=== PATIENT | male | born 1950 | race Caucasian/White ===

== ENCOUNTER 2022-06-30 04:30 | Inpatient (IN) | payer MEDICARE, OTHER, SELFPAY ==
[2022-06-30] VITALS (23 sets, daily range): BP systolic 135–189; BP diastolic 81–98; PULSE 80–105; RESP 13–18; TEMP 36–37.2; O2SAT 93–98; BMI 34.2
--- NOTE | 2022-06-30 04:33 | ED_ITS ---
Documented by User: Alexis Hudson MD 06/30/22 04:35 HPI - General Adult General: Chief complaint: General Medical Stated complaint: bladder issues Time Seen by Provider: 06/30/22 04:31 Source: patient and EMS Mode of arrival: EMS Limitations: no limitations History of Present Illness: 71-year-old male who was transferred here from [place] with urinary retention along with hematuria does have a history of cancer patient was seen at [place] had a CT scan that showed large clots in his bladder he does have a Courtney in place but states that he has had increasing pain and is unable to urinate all the way they did not have three-way catheter therefore urology he states his pain is suprapubic in nature rates it a 5 out of 10. He does have blood in the Courtney at this time. Associated symptoms: Deny chest pain, dyspnea, headache(s), nausea, rash or vomiting Review of Systems Const: Denies: fever(s), chills, body aches or change in appetite Eyes: Denies: blurry vision or eye discomfort ENMT: Denies: throat pain or dental pain Card: Denies: chest pain Resp: Denies: dyspnea GI: Denies: abdominal pain, nausea, vomiting or diarrhea : Reports: difficulty urinating and hematuria Musc: Denies: neck pain or back pain Skin/Breast: Denies: rash Neuro: Denies: headache(s) Psych: Denies: depression Antonio/Lymph: Denies: easy bruising All/Imm: Denies: urticaria PFSH ED PFSH: Medical History (Updated 06/30/22 @ 06:40 by Monico Cason MD) Arthritis Obstructive sleep apnea Squamous cell carcinoma Surgical History (Updated 06/30/22 @ 06:36 by Monico Cason MD) History of cardiac catheterization History of colonoscopy History of sinus surgery History of total knee arthroplasty Status post tonsillectomy Family History (Updated 06/30/22 @ 06:37 by Monico Cason MD) Denies family history of Bleeding disorder Social History (Updated 06/30/22 @ 06:37 by Monico Cason MD) Smoking and tobacco status: smoker, details unknown Alcohol intake: current Alcohol use comment: Rare Substance/Drug Use: current Substance/Drug use type: Marijuana Physical Exam Const: COMMON NORMALS: no acute distress, patient oriented x3 and healthy appe [facility] HENMT: COMMON NORMALS: normocephalic and atraumatic HEAD & SCALP: normocephalic and atraumatic Eye: COMMON NORMALS: Equal, round and reactive pupils present and EOMs intact bilaterally PUPIL: Yes Equal, round and reactive pupils present Neck/C-Spine: COMMON NORMALS: full ROM and supple Chest: COMMONS NORMALS: normal inspection of the chest and normal palpation of entire chest wall Resp: COMMON NORMALS: normal respiratory effort, No retractions, No use of accessory muscles and clear to auscultation bilaterally AUSCULTATION: clear to auscultation bilaterally Cardio: COMMON NORMALS: regular rate, regular rhythm and No murmurs present (Cardio) RATE: regular rate RHYTHM: regular rhythm GI: COMMON NORMALS: Normal to inspection, nondistended, normoactive bowel sounds present, Soft to palpation and no masses PALPATION: Yes Soft to palpation OTHER: Suprapubic tenderness patient has a Courtney in place minimal drainage in the Courtney bag has a large amount of blood in it Extremity: COMMON NORMALS: normal to inspection and full ROM Neuro: COMMON NORMALS: patient oriented x3, moves all extremities and no focal motor deficits Psych: COMMON NORMALS: mental status grossly normal, Normal thought process present and cooperative THOUGHT PROCESS: Normal thought process present Skin: COMMON NORMALS: no rashes or lesions noted and no wounds GENERAL SKIN EXAM: no rashes or lesions noted Course 2 Vital Signs: Vital signs: Vital Signs Temperature 96.8 F L 06/30/22 04:30 Pulse Rate 93 06/30/22 06:15 Respiratory Rate 18 06/30/22 06:15 Blood Pressure 147/86 06/30/22 06:15 Pulse Oximetry 97 06/30/22 06:15 Oxygen Delivery Me thod 06/30/22 06:15 Oxygen Flow Rate 1 06/30/22 06:15 [facility] - General Adult Lab Data : 06/30/22 05:00 06/30/22 05:00 Laboratory Results WBC 12.6 10^3/uL (4.0-10.0) H 06/30/22 05:00 RBC 3.99 10^6/uL (4.1-5.3) L 06/30/22 05:00 Hgb 11.4 g/dL (11.7-16.6) L 06/30/22 05:00 Hct 34.5 % (42.0-52.0) L 06/30/22 05:00 MCV 86.5 fl (80-94) 06/30/22 05:00 MCH 28.6 pg (28.0-34.0) 06/30/22 05:00 MCHC 33.0 g/dL (30.0-36.0) 06/30/22 05:00 RDW 14.3 % (12.1-15.1) 06/30/22 05:00 Plt Count 160 10^3/cmm (130-400) 06/30/22 05:00 MPV 9.7 fL (7.4-10.4) 06/30/22 05:00 Neut % (Auto) 84.3 % 06/30/22 05:00 Lymph % (Auto) 8.8 % 06/30/22 05:00 Patrick % (Auto) 5.8 % 06/30/22 05:00 Eos % (Auto) 0.2 % 06/30/22 05:00 Baso % (Auto) 0.4 % 06/30/22 05:00 Neut # (Auto) 10.58 10^3/uL (1.8-7.7) H 06/30/22 05:00 Lymph # (Auto) 1.1 10^3/uL (0.8-4.8) 06/30/22 05:00 Patrick # (Auto) 0.7 10^3/uL (0.2-0.9) 06/30/22 05:00 Eos # (Auto) 0.0 10^3/uL (0.0-0.8) 06/30/22 05:00 Baso # (Auto) 0.1 10^3/uL (0.0-0.1) 06/30/22 05:00 Nucleated RBC % (auto) 0 % 06/30/22 05:00 Nucleated RBCs # 0.0 /100WBC 06/30/22 05:00 PT 16.20 SECONDS (12.1-14.9) H 06/30/22 05:00 INR 1.27 (0.8-1.2) H 06/30/22 05:00 Sodium 136 mmol/L (136-145) 06/30/22 05:00 Potassium 4.6 mmol/L (3.5-5.1) 06/30/22 05:00 Chloride 99 mmol/L (98-107) 06/30/22 05:00 Carbon Dioxide 24 mmol/L (22-29) 06/30/22 05:00 Anion Gap 17.6 (5-19) 06/30/22 05:00 BUN 24 mg/dL (8-23) H 06/30/22 05:00 Creatinine 1.2 mg/dL (0.7-1.2) 06/30/22 05:00 GFR Calculation Not Reportable 06/30/22 05:00 Glucose 148 mg/dL (65-115) H 06/30/22 05:00 Calculated Osmolality 289 mOsm/kg (285-295) 06/30/22 05:00 Calcium 9.9 mg/dL (8.5-10.5) 06/30/22 05:00 Total Bilirubin 1.3 mg/dL (0.15-1.2) H 06/30/22 05:00 AST 18 U/L (0-40) 06/30/22 05:00 ALT 18 U/L (0-41) 06/30/22 05:00 Alkaline Phosphatase 426 U/L (40-130) H 06/30/22 05:00 Total Protein 7.7 g/dL (6.6-8.7) 06/30/22 05:00 Albumin 4.6 g/dL (3.5-5.2) 06/30/22 05:00 Globulin 3.1 g/dL (1.3-4.6) 06/30/22 05:00 Blood Type AB Negative 06/30/22 05:00 Rho(D) Type Negative 06/30/22 05:00 Antibody Screen Negative 06/30/22 05:00 Discharge Plan Discharge Patient Disposition: Admitted As Inpatient Clinical Impression: Hematuria, Acute urinary retention Condition: Stable Sign Out Sign Out Data: Patient Sign Out occurred on 06/30/22 at 06:02. Patient's care was discussed, and care was transferred from to Andrea Gutierres MD. Coding Level of Care Code ED Operations Support Manager for Chg Fwd Exam Comprehensive Documented by User: Andrea Gutierres MD 06/30/22 06:46 HPI - General Adult General: Chief complaint: General Medical Stated complaint: bladder issues Time Seen by Provider: 06/30/22 04:31 [facility] ED PFSH: Medical History (Updated 06/30/22 @ 06:40 by Monico Cason MD) Arthritis Obstructive sleep apnea Squamous cell carcinoma Surgical History (Updated 06/30/22 @ 06:36 by Monico Cason MD) History of cardiac catheterization History of colonoscopy History of sinus surgery History of total knee arthroplasty Status post tonsillectomy Family History (Updated 06/30/22 @ 06:37 by Monico Cason MD) Denies family history of Bleeding disorder Social History (Updated 06/30/22 @ 06:37 by Monico Cason MD) Smoking and tobacco status: smoker, details unknown Alcohol intake: current Alcohol use comment: Rare Substance/Drug Use: current Substance/Drug use type: Marijuana Course Vital Signs: Vital signs: Vital Signs Temperature 96.8 F L 06/30/22 04:30 Pulse Rate 93 06/30/22 06:15 Respiratory Rate 18 06/30/22 06:15 Blood Pressure 147/86 06/30/22 06:15 Pulse Oximetry 97 06/30/22 06:15 Oxygen Delivery Me thod 06/30/22 06:15 Oxygen Flow Rate 1 06/30/22 06:15 MDM - General Adult Medical Decision Making Patient care handoff received from Dr. Hudson pending Dr. Cason's evaluation of the patient and plan. After evaluation patient requires further treatment under anesthesia and patient taken to surgery for definitive treatment. Please see Dr. Cason's note for complete details of the evaluation and plan. Patient left emergency department in satisfactory condition. Andrea Gutierres MD Emergency Medicine Lab Data : 06/30/22 05:00 06/30/22 05:00 Laboratory Results WBC 12.6 10^3/uL (4.0-10.0) H 06/30/22 05:00 RBC 3.99 10^6/uL (4.1-5.3) L 06/30/22 05:00 Hgb 11.4 g/dL (11.7-16.6) L 06/30/22 05:00 Hct 34.5 % (42.0-52.0) L 06/30/22 05:00 MCV 86.5 fl (80-94) 06/30/22 05:00 MCH 28.6 pg (28.0-34.0) 06/30/22 05:00 MCHC 33.0 g/dL (30.0-36.0) 06/30/22 05:00 RDW 14.3 % (12.1-15.1) 06/30/22 05:00 Plt Count 160 10^3/cmm (130-400) 06/30/22 05:00 MPV 9.7 fL (7.4-10.4) 06/30/22 05:00 Neut % (Auto) 84.3 % 06/30/22 05:00 Lymph % (Auto) 8.8 % 06/30/22 05:00 Patrick % (Auto) 5.8 % 06/30/22 05:00 Eos % (Auto) 0.2 % 06/30/22 05:00 Baso % (Auto) 0.4 % 06/30/22 05:00 Neut # (Auto) 10.58 10^3/uL (1.8-7.7) H 06/30/22 05:00 Lymph # (Auto) 1.1 10^3/uL (0.8-4.8) 06/30/22 05:00 Patrick # (Auto) 0.7 10^3/uL (0.2-0.9) 06/30/22 05:00 Eos # (Auto) 0.0 10^3/uL (0.0-0.8) 06/30/22 05:00 Baso # (Auto) 0.1 10^3/uL (0.0-0.1) 06/30/22 05:00 Nucleated RBC % (auto) 0 % 06/30/22 05:00 Nucleated RBCs # 0.0 /100WBC 06/30/22 05:00 PT 16.20 SECONDS (12.1-14.9) H 06/30/22 05:00 INR 1.27 (0.8-1.2) H 06/30/22 05:00 Sodium 136 mmol/L (136-145) 06/30/22 05:00 Potassium 4.6 mmol/L (3.5-5.1) 06/30/22 05:00 Chloride 99 mmol/L (98-107) 06/30/22 05:00 Carbon Dioxide 24 mmol/L (22-29) 06/30/22 05:00 Anion Gap 17.6 (5-19) 06/30/22 05:00 BUN 24 mg/dL (8-23) H 06/30/22 05:00 Creatinine 1.2 mg/dL (0.7-1.2) 06/30/22 05:00 GFR Calculation Not Reportable 06/30/22 05:00 Glucose 148 mg/dL (65-115) H 06/30/22 05:00 Calculated Osmolality 289 mOsm/kg (285-295) 06/30/22 05:00 Calcium 9.9 mg/dL (8.5-10.5) 06/30/22 05:00 Total Bilirubin 1.3 mg/dL (0.15-1.2) H 06/30/22 05:00 AST 18 U/L (0-40) 06/30/22 05:00 ALT 18 U/L (0-41) 06/30/22 05:00 Alkaline Phosphatase 426 U/L (40-130) H 06/30/22 05:00 Total Protein 7.7 g/dL (6.6-8.7) 06/30/22 05:00 Albumin 4.6 g/dL (3.5-5.2) 06/30/22 05:00 Globulin 3.1 g/dL (1.3-4.6) 06/30/22 05:00 Blood Type AB Negative 06/30/22 05:00 Rho(D) Type Negative 06/30/22 05:00 Antibody Screen Negative 06/30/22 05:00 Discharge Plan Discharge Patient Disposition: Admitted As Inpatient Clinical Impression: Hematuria, Acute urinary retention Condition: Stable Sign Out Sign Out Data: Patient Sign Out occurred on 06/30/22 at 06:02. Patient's care was discussed, and care was transferred from to Andrea Gutierres MD. Coding Level of Care Code ED Operations Support Manager for Chg Fwd Exam Comprehensive
[2022-06-30] MEDS: morphine 4 mg/mL SDV 1 mL IVP (04:55)
[2022-06-30] MEDS: ondansetron 2 mg/ML SDV 2 mL 4 MG IVP (04:55)
--- NOTE | 2022-06-30 05:05 | PC.NURSE ---
Pt presented with Urinary catheter upon arrival 22french/10ml. 6mls of NS removed from cath bulb prior to removal or urinary cath. 275 ml dark red hematuria drained from existing robbins bag. Dark red drainage noted after cath removal. Pt cleaned and prepped for 20fr/30ml 3 way catheter with continuous irrigation. Catheter was inserted to hub with 20ml bulb inflation. Pt CO pain with attempt to inflate to 30ml. Bulb decreased to 20mls inflation, catheter was then pulled back until resistance was met and secured with stat lock. Drainage noted around catheter at the meatus with 20 ml insertion. MD aware and irrigation began. Pt reports relief of pressure with irrigation running wide open. Pt does report burning at insertion site.
[2022-06-30 05:12] LABS: Basophils # 0.1 10^3/uL (0.0-0.1); Basophils % 0.4 %; Eosinophils % 0.2 %; Hematocrit 34.5 % (42.0-52.0); Hemoglobin 11.4 g/dL (11.7-16.6); Lymphocytes # 1.1 10^3/uL (0.8-4.8); Lymphocytes % 8.8 %; Mean Corpuscular Hemoglobin 28.6 pg (28.0-34.0); Mean Corpuscular Volume 86.5 fl (80-94); Mean Platelet Volume 9.7 fL (7.4-10.4); Monocytes # 0.7 10^3/uL (0.2-0.9); Monocytes % 5.8 %; Neutrophils # 10.58 10^3/uL (1.8-7.7); Neutrophils % 84.3 %; Nucleated Red Blood Cells % 0 %; Platelet Count 160 10^3/cmm (130-400); Red Blood Count 3.99 10^6/uL (4.1-5.3); Red Cell Distribution Width 14.3 % (12.1-15.1); White Blood Count 12.6 10^3/uL (4.0-10.0)
[2022-06-30 05:26] LABS: INR 1.27 (0.8-1.2)
[2022-06-30] MEDS: HYDROmorphone 1 mg/mL INJ 1 mL 0.5 MG IVP (05:30)
[2022-06-30 05:37] LABS: Alanine Aminotransferase 18 U/L (0-41); Albumin Level 4.6 g/dL (3.5-5.2); Alkaline Phosphatase 426 U/L (40-130); Anion Gap 17.6 (5-19); Aspartate Amino Transferase 18 U/L (0-40); Blood Urea Nitrogen 24 mg/dL (8-23); Calcium 9.9 mg/dL (8.5-10.5); Carbon Dioxide 24 mmol/L (22-29); Chloride 99 mmol/L (98-107); Creatinine Clr Calc Pharmacy 69.5063; Globulin 3.1 g/dL (1.3-4.6); Glucose 148 mg/dL (65-115); Osmolality Calculated 289 mOsm/kg (285-295); Potassium 4.6 mmol/L (3.5-5.1); Sodium 136 mmol/L (136-145); Total Bilirubin 1.3 mg/dL (0.15-1.2); Total Protein 7.7 g/dL (6.6-8.7)
--- NOTE | 2022-06-30 05:54 | PC.NURSE ---
Pt placed on 1 L NC due to O2 saturation in high 80s
[2022-06-30] MEDS: morphine 4 mg/mL SDV 1 mL 2 MG IVP (06:10)
[2022-06-30] MEDS: lidocaine 2% Urojet 20 mL TOPICAL ×2 (06:20→08:01)
--- NOTE | 2022-06-30 06:26 | P.HP_ITS ---
Providers/Chief Complaint Admitting Physician: Yoav Chief Complaint: Clot urinary retention, urethral trauma History of Present Illness Earnest Kumar is a 71 year old male who I evaluated for the first time today at the [facility] emergency department. Patient was transferred to our emergency department from [facility]. Transfer had initially been requested for [facility] in [place] but they were on total divert due to no beds available. He had developed acute onset of gross hematuria and his bladder was not able to be cleared of clots and for that reason in the absence of urologic care locally they transferred the patient here. I do not have a lot of the details but he was recently apparently diagnosed with what appears to be metastatic renal cell carcinoma or some variant of renal cancer. Work-up is ongoing at [facility]. He was seen yesterday by urology at [facility]. We do not have those records yet. Apparently after returning home he developed gross hematuria and presented to the emergency department in [place] and was found to be in urinary retention. A CT scan showed a distended bladder with clots in the bladder. A catheter was placed but they never could irrigate it. He was transferred here for further care. Catheter was replaced here but never really functioned. It was uncomfortable for him when the balloon was inflated. Upon my arrival the catheter was removed. He had continued oozing from the urethra. A flexible cystoscopy was performed that demonstrated bulbar urethral trauma likely from balloon inflation. The true lumen could not be adequately identified and it was decided to forego further pursuit of the true lumen with flexible cystoscopy and instead convert to an anesthetic procedure for better control. If unable to bridge the urethra then perform open suprapubic tube placement. Normally would try for a percutaneous approach but due to the clots in the bladder he would require a large bore catheter. This is further complicated by chronic anticoagulation related to a PE. His last dose of Eliquis was about 48 hours ago per his best recollection. Patient was consented for cystoscopy, possible open suprapubic tube placement emergently. Risks and benefits thoroughly discussed. I did review his CT scan from [place] that showed a distended bladder, large amount of clot in the posterior aspect of the bladder, what appeared to be a mass in the left kidney. Could not tell whether was urothelial or parenchymal. The report also talks about pulmonary nodules suspicious for metastatic disease. We do not have his work-up from [facility] regarding the recent diagnosis of what sounds like metastatic kidney cancer but we will pursue those records. Review of Systems Const: Denies: fever(s) or chills Eyes: Denies: change in vision ENMT: Denies: hoarseness Card: Denies: chest pain Resp: Denies: dyspnea, productive cough or wheezing GI: Reports: abdominal pain; Denies: vomiting : Reports: difficulty urinating and hematuria; Denies: flank pain Musc: Denies: joint redness Skin/Breast: Denies: rash Neuro: Denies: confusion, behavioral changes or Slurred speech present Psych: Denies: anxiety or memory loss Antonio/Lymph: Reports: easy bruising and easy bleeding; Denies: enlarged lymph nodes All/Imm: Denies: acute wheezing PFSH Acute PFSH: Medical History (Updated 06/30/22 @ 06:40 by Monico Cason MD) Arthritis Obstructive sleep apnea Squamous cell carcinoma Surgical History (Updated 06/30/22 @ 06:36 by Monico Cason MD) History of cardiac catheterization History of colonoscopy History of sinus surgery History of total knee arthroplasty Status post tonsillectomy Family History (Updated 06/30/22 @ 06:37 by Monico Cason MD) Denies family history of Bleeding disorder Social History (Updated 06/30/22 @ 06:37 by Monico Cason MD) Smoking and tobacco status: smoker, details unknown Alcohol intake: current Alcohol use comment: Rare Substance/Drug Use: current Substance/Drug use type: Marijuana Vitals/I&O/Wt Last Vital Signs Temp 96.8 F L 06/30/22 04:30 Pulse 88 06/30/22 05:45 Resp 16 06/30/22 05:45 BP 167/82 06/30/22 05:45 Pulse Ox 95 06/30/22 05:45 O2 Del Method 06/30/22 04:30 Weight last 48 hrs Weight 245 lb Physical Exam Const: COMMON NORMALS: no acute distress, alert and well nourished GENERAL APPEARANCE: well kempt and well developed ORIENTATION/CONSCIOUSNESS: not confused HENMT: COMMON NORMALS: normocephalic HEAD & SCALP: normal to inspection and normocephalic Eye: COMMON NORMALS: conjunctivae normal and no scleral icterus CONJUNCTIVA: Yes conjunctivae normal Neck/C-Spine: GENERAL: Yes normal visual inspection Resp: COMMON NORMALS: normal respiratory effort EFFORT & INSPECTION: Yes able to speak in complete sentences, No labored and No Actively coughing Cardio: COMMON NORMALS: regular rate and regular rhythm : OTHER: Abdomen is full in the suprapubic area. Tender. Back/Pelvis: COMMON NORMALS: no CVA tenderness Extremity: OTHER: Good range of motion Neuro: COMMON NORMALS: no focal motor deficits SENSORIUM/ORIENTATION: Yes alert Psych: COMMON NORMALS: mental status grossly normal APPEARANCE: Yes grossly normal and Yes well kempt ATTITUDE: Yes calm and Yes engaged Skin: COMMON NORMALS: no rashes or lesions noted and no jaundice GENERAL SKIN EXAM: no rashes or lesions noted Urinary Catheter Management: 3-way Urethral CBI: Cath Placed During This Visit: yes Reason for Continuing Indwelling Catheter: Acute Urinary Retention or Obstruction Urinary Catheter Date of Insertion: 06/30/22 Urinary Catheter Time of Insertion: 05:24 Courtney: Cath Placed During This Visit: yes, but has since been removed by the nurse Reason for Continuing Indwelling Catheter: Decision to DC Catheter Date Urinary Catheter Removed: 06/30/22 Time Urinary Catheter Discontinued: 05:00 Data : 06/30/22 05:00 06/30/22 05:00 CT Abd/Pel: My impression: See HPI. Personally reviewed A&P Assessment and plan (1) Acute urinary retention: (2) Clot retention of urine: (3) Hematuria: (4) Renal cancer: Plan 1. Urgently to the OR for the above procedures. 2. Will likely require admission. Will consult hospitalist for medical management 3. Pursue records from [facility] for short-term management Attestations Medical Necessity Statement*: Retention, urethral trauma cannot be managed on outpatient basis. 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
--- NOTE | 2022-06-30 06:34 | PC.NURSE ---
Left ED for surgery at 0633
[2022-06-30] MEDS: sodium chloride 0.9% 1,000 ML 30 ML IV ×2 (06:59→12:01)
[2022-06-30 07:01] LABS: Glucose Point of Care 175 mg/dL (70-110)
--- NOTE | 2022-06-30 07:02 | P.ANESASSM_ITS ---
Pre-Anesthetic Assessment Height/Weight: Height 1.8 m Weight 111.13 kg Temp Pulse Resp BP Pulse Ox O2 Del Method O2 Flow Rate 97.5 F L 93 18 135/90 96 1 06/30/22 06:44 06/30/22 06:44 06/30/22 06:44 06/30/22 06:44 06/30/22 06:44 06/30/22 06:44 06/30/22 06:15 Operation Date: 06/30/22 07:00 Proposed Procedures p Cystoscopy(Not Applicable) - Monico Cason MD s Possible Suprapubic Catheter Placement(Not Applicable) - Monico Cason MD Familial anesthetic complications: None Was Beta Luis Eduardo taken within 24 hours: Yes Was Clonidine taken within 24 hours: N/A Last intake: Intake Last Liquid Date 06/29/22 Last Liquid Time 12:00 Last Solid Date 06/29/22 Last Solid Time 12:00 Social Tobacco (Marijuana at bedtime to sleep) and No alcohol Exam alert, oriented x 3, clear to auscultation bilaterally (Diminished bilaterally) and regular rate & rhythm Airway Submandibular: within normal limits Cervical ROM: within normal limits Mallampati: Class III Dentition: false History/ROS No significant history except as noted and No significant complaints Pulmonary Exertional Dyspnea and Sleep Apnea CV/HEM Arrythmia (Doesn't know what type of arrythmia; born with an enlarged heart, no issues in years per patient), Deep Vein Thrombosis (Caused PE) and Hypertension Renal tumor, no treatment so far. Symptoms started a month ago Hepatic None reported GI None reported Metabolic Diabetes Mellitus and Hyperlipidemia [facility] [place] Lower Back Pain Neuropsych Anxiety and Depression Anesthetic Plan ASA status: 3E Anesthesia: Anesthesia Evaluation and General Risk of > 500 ml blood loss (7ml/kg in children): No Medications/Allergies Home Medications Medication Instructions Recorded Confirmed Last Taken Type alprazolam 0.5 mg tablet 0.5 mg PO DAILY 06/30/22 06/30/22 06/28/22 History amlodipine 10 mg tablet 10 mg PO DAILY 06/30/22 06/30/22 06/28/22 History apixaban 5 mg tablet (Eliquis) 5 mg PO DAILY 06/30/22 06/30/22 06/28/22 History atorvastatin 40 mg tablet 40 mg PO DAILY 06/30/22 06/30/22 06/28/22 History citalopram 40 mg tablet 40 mg PO DAILY 06/30/22 06/30/22 06/28/22 History ezetimibe 10 mg tablet (Zetia) 10 mg PO DAILY 06/30/22 06/30/22 06/28/22 History hydrocodone 5 mg-acetaminophen 325 1 tab PO DAILY 06/30/22 06/30/22 06/29/22 History mg tablet metformin 500 mg tablet 500 mg PO DAILY 06/30/22 06/30/22 06/28/22 History metoprolol succinate 50 mg 50 mg PO DAILY 06/30/22 06/30/22 06/28/22 History tablet,extended release 24 hr ondansetron HCl 8 mg tablet 8 mg PO DAILY 06/30/22 06/30/22 Unknown History prochlorperazine maleate 10 mg 10 mg PO DAILY 06/30/22 06/30/22 06/28/22 History tablet (Compazine) quetiapine 100 mg tablet (Seroquel) 100 mg PO DAILY 06/30/22 06/30/22 06/28/22 History tizanidine 4 mg tablet 4 mg PO DAILY 06/30/22 06/30/22 06/28/22 History trazodone 100 mg tablet 300 mg PO BEDTIME 06/30/22 06/30/22 06/28/22 History Allergies Allergy/AdvReac Type Severity Reaction Status Date / Time Penicillins Allergy ALGY-Hives Verified 06/30/22 06:49 Current Medications Generic Name Dose Route Start Last Admin Trade Name Freq PRN Reason Stop Dose Admin Sodium Chloride 1,000 mls @ 30 mls/hr 06/30/22 06:45 06/30/22 06:59 Sodium Chloride 0.9% IV 07/01/22 06:44 30 mls/hr .Q24H HARRIET Administration PFSH Anesthesia Medical History (Updated 06/30/22 @ 06:40 by Monico Cason MD) Arthritis Obstructive sleep apnea Squamous cell carcinoma Surgical History (Updated 06/30/22 @ 06:36 by Monico Cason MD) History of cardiac catheterization History of colonoscopy History of sinus surgery History of total knee arthroplasty Status post tonsillectomy Family History (Updated 06/30/22 @ 06:37 by Monico Cason MD) Denies family history of Bleeding disorder Social History (Updated 06/30/22 @ 06:37 by Monico Cason MD) Smoking and tobacco status: smoker, details unknown Alcohol intake: current Alcohol use comment: Rare Substance/Drug Use: current Substance/Drug use type: Marijuana Data Anesthesia : 06/30/22 05:00 06/30/22 05:00 Short CBC 06/30/22 Range/Units 05:00 WBC 12.6 H (4.0-10.0) 10^3/uL Hgb 11.4 L (11.7-16.6) g/dL Hct 34.5 L (42.0-52.0) % MCV 86.5 (80-94) fl Plt Count 160 (130-400) 10^3/cmm Neut % (Auto) 84.3 % Neut # (Auto) 10.58 H (1.8-7.7) 10^3/uL BMP 06/30/22 05:00 Sodium 136 Potassium 4.6 Chloride 99 Carbon Dioxide 24 BUN 24 H Creatinine 1.2 Glucose 148 H Calcium 9.9 Liver Function 06/30/22 Range/Units 05:00 Total Bilirubin 1.3 H (0.15-1.2) mg/dL AST 18 (0-40) U/L ALT 18 (0-41) U/L Alkaline Phosphatase 426 H (40-130) U/L Albumin 4.6 (3.5-5.2) g/dL Blood Bank 06/30/22 05:00 Blood Type AB Negative Rho(D) Type Negative Antibody Screen Negative Coags 06/30/22 05:00 PT 16.20 H INR 1.27 H Cardiac Studies: No Data to Display
[2022-06-30] MEDS: levofloxacin-dextrose 5 % 500 MG/100 ML PREMIX 100 MG IV (07:18)
--- NOTE | 2022-06-30 08:17 | P.OP_ITS ---
Operative Report Date of procedure: June 30, 2022 Pre-op diagnosis: 1. Clot urinary retention 2. Iatrogenic urethral trauma Post-op diagnosis: 1. Clot urinary retention 2. Iatrogenic urethral trauma Procedure done: 1. Cystoscopy, urethral dilation 2. Difficult catheter placement 3. Clot evacuation Implants: 24 [place] three-way Couvelaire catheter 30 cc in the balloon with continuous bladder irrigation Specimens removed/disposition: Clots Pathology: None Surgeon: Yoav Estimated blood loss: Approximately 50 cc Urine output: Not measured Complications: None Findings: Anesthesia: General Condition: Stable Disposition: PACU Intraoperative findings: * Severe urethral trauma in the deep bulbar area not passable with cystoscope. * Ultimately passable with 7 [place] offset semirigid ureteroscope and true lumen was found proximal to the urethral trauma and scope able to be manipulated into the bladder. * Sequential dilation with catheter sounds from 10 [place] to 24 [place] * Final catheter was a 24 [place] Couvelaire three-way hematuria catheter with 30 cc placed in the balloon. * Approximately 400 to 600 cc of old clot irrigated. * Maintained CBI at completion Brief History: Mr. Kumar is a very pleasant 71-year-old white male who I evaluated for the first time today in our emergency department after transfer from [facility] for clot retention and inability to drain bladder with catheter. A small bore catheter was in his urethra. He had a lot of discomfort apparently when it was placed. Irrigation was not functional and he was transferred for evaluation here. He was originally attempted to be transferred to [facility] where he is followed by urology and oncology but they were on full divert due to no beds available. Catheter had been attempted to be placed but was unsuccessfully positioned when he arrived in our emergency department. A flexible cystoscopy in the emergency department showed urethral injury from catheter malposition and it was recommended that we evaluate in the operating room emergently under anesthesia for more controlled environment to try to find the true lumen to bridge to the bladder and if not an open suprapubic tube placement with large bore catheter in order to irrigate clot. Procedure: After emergent evaluation examination and obtaining of informed consent he was taken to the operating suite on 06/30/2022 where general anesthesia was administered without difficulty. He was prepped and draped in usual sterile fashion in dorsolithotomy position after appropriate timeout was performed, SCDs confirmed to be functioning, preoperative antibiotics administered, beta-tico protocol confirmed. Prepped and draped in usual sterile fashion in dorsolithotomy position paying careful attention to avoiding pressure points. The 17 [place] cystoscope was advanced gingerly into the urethra up to the bulbar urethra where the injury had been identified. The true lumen could not be clearly identified. At this point a 7 [place] offset semirigid ureteroscope was passed and it appeared that there was some continuity of the urethral wall on the patient's right lateral aspect and this was followed closely with the scope and thankfully led to the true lumen proximal to the injury. The injury included at least 2 large and what appeared to be fairly deep false passages. Once the scope was passed into the bladder it was clear that there was a lot of clot has had been demonstrated on CT scan. A guidewire was then passed through the scope and curled in the bladder. Sequential dilation from 10-24 [place]er was then conducted with twin hills tip catheters first straight catheters from 10-18 [place] and then 20, 22, and 24 [place] routine Courtney catheter was. Each had return confirming intra bladder position. Lidocaine jelly was used with a 24 [place] once. The final catheter placed was a converted to a twin hills tip 24 [place] three-way Couvelaire 30 cc balloon catheter for irrigation purposes. Thankfully it went easily into the bladder. The balloon was inflated with the wire still in place and easily inflated and the catheter was then snugged loosely back onto the prostate. Irrigation was conducted through the irrigation port and confirming patency. The wire was removed then. Clot evacuation was then performed with about 3 L of sterile water irrigated in about 600 cc of clot was irrigated out of the bladder. Once all the clot was removed irrigation remained clear and the catheter was placed to continuous bladder irrigation with maintenance of clarity of urine. The procedure was completed and the catheter was placed to dependent drainage with CBI running. He tolerated the procedure well without complications and was awakened in the operating room and returned to PACU in stable condition. PLANS: 1. Admit to inpatient status 2. Consult hospitalist service for medical management 3. He will need to maintain the catheter for at least a couple weeks for healing purposes and then be rescoped at removal to make sure that healing is adequate to leave it out. 4. We will send notes to [facility] where his primary care of his urologic left renal cancer that sounds as though it might be metastatic is being evaluated. 5. He has had a history of recent pulmonary embolism. Has been off Eliquis for about 48 hours. We will restart that.
--- NOTE | 2022-06-30 10:43 | PM.CONSULT ---
Providers/Reason For Consult Consulting Physician/Specialty*: Henrry Beverly MD. Hospitalist. Reason for Consult*: Medical management Attending Physician: Monico Cason MD History of Present Illness History of Present Illness Earnest Kumar is a 71 year old male transferred from [facility] for concerns of hematuria, with clot formation and inability to urinate. Courtney catheter was also not able to be placed. Patient was transferred ER to ER, and urology evaluated the patient this morning. He was taken to the OR and catheter was able to be placed with urethral dilation and cystoscopy. Clot evacuation also occurred. Iatrogenic urethral trauma was noted. He is now on CBI. Patient reports he was recently discharged from [facility] with hospital stay for markedly elevated blood pressure where metastatic renal cell cancer was noted. He reports he has a mass in his kidney, with masses in his lungs as well as his cervical vertebrae. He reports there is a question of a lesion in his brain as well. He reports he has follow-up with them regarding this. Currently he reports he feels better with the Courtney as he could not urinate before and was having bladder pressure. He denies any complaints of chest pain or shortness of breath currently. Review of Systems General: Reports: 10 or more systems reviewed and unremarkable except in HPI and below Const: Denies: fever(s) or chills Eyes: Denies: change in vision ENMT: Denies: throat pain Card: Denies: chest pain Resp: Denies: dyspnea GI: Reports: abdominal pain (Now resolved) : Reports: difficulty urinating and hematuria Musc: Denies: neck pain Skin/Breast: Denies: rash Neuro: Denies: headache(s) Psych: Denies: anxiety or depression Endo: Denies: polyuria Antonio/Lymph: Denies: easy bruising All/Imm: Denies: urticaria Medications/Allergies Home Medications Medication Instructions Recorded Confirmed Last Taken Type alprazolam 0.5 mg tablet 0.5 mg PO DAILY 06/30/22 06/30/22 06/28/22 History amlodipine 10 mg tablet 10 mg PO DAILY 06/30/22 06/30/22 06/28/22 History apixaban 5 mg tablet (Eliquis) 5 mg PO DAILY 06/30/22 06/30/22 06/28/22 History atorvastatin 40 mg tablet 40 mg PO DAILY 06/30/22 06/30/22 06/28/22 History citalopram 40 mg tablet 40 mg PO DAILY 06/30/22 06/30/22 06/28/22 History ezetimibe 10 mg tablet (Zetia) 10 mg PO DAILY 06/30/22 06/30/22 06/28/22 History hydrocodone 5 mg-acetaminophen 325 1 tab PO DAILY 06/30/22 06/30/22 06/29/22 History mg tablet metformin 500 mg tablet 500 mg PO DAILY 06/30/22 06/30/22 06/28/22 History metoprolol succinate 50 mg 50 mg PO DAILY 06/30/22 06/30/22 06/28/22 History tablet,extended release 24 hr ondansetron HCl 8 mg tablet 8 mg PO DAILY 06/30/22 06/30/22 Unknown History prochlorperazine maleate 10 mg 10 mg PO DAILY 06/30/22 06/30/22 06/28/22 History tablet (Compazine) quetiapine 100 mg tablet (Seroquel) 100 mg PO DAILY 06/30/22 06/30/22 06/28/22 History tizanidine 4 mg tablet 4 mg PO DAILY 06/30/22 06/30/22 06/28/22 History trazodone 100 mg tablet 300 mg PO BEDTIME 06/30/22 06/30/22 06/28/22 History Allergies Allergy/AdvReac Type Severity Reaction Status Date / Time Penicillins Allergy ALGY-Hives Verified 06/30/22 06:49 PFSH Acute PFSH: Medical History (Updated 06/30/22 @ 10:52 by Henrry Beverly MD) Arthritis Depression with anxiety Diabetes History of IHSS Hyperlipidemia Hypertension Obstructive sleep apnea Pulmonary embolism Renal cancer Squamous cell carcinoma Surgical History History of cardiac catheterization History of colonoscopy History of sinus surgery History of total knee arthroplasty Status post tonsillectomy Family History Denies family history of Bleeding disorder Social History (Updated 06/30/22 @ 10:49 by Henrry Beverly MD) Smoking and tobacco status: former smoker Alcohol intake: current Alcohol use comment: Rare Substance/Drug Use: current Substance/Drug use type: Marijuana Other [facility] information: Supplemental [facility] Information: Adopted. Does not know significant family history Vitals/I&O/Wt Last Vital Signs Temp 98.5 F 06/30/22 09:32 Pulse 80 06/30/22 10:20 Resp 18 06/30/22 10:20 BP 156/88 06/30/22 10:20 Pulse Ox 98 06/30/22 10:20 O2 Del Method 06/30/22 10:20 O2 Flow Rate 6 06/30/22 08:39 06/29/22 06/30/22 06/30/22 22:59 06:59 14:59 Intake Total 1200 / 1200 Output Total Balance 1175 / 1175 Weight last 48 hrs Weight 111.13 kg Physical Exam Narrative: General exam is no apparent distress HEENT: Atraumatic and normocephalic. Pupils equally round. Rhinophyma is noted. Oropharynx is clear. Neck is supple no lymphadenopathy or thyromegaly Cardiovascular regular rate and rhythm without murmur, no S3 or S4 Lungs clear no wheezing or crackles Abdomen is soft, positive bowel sounds. No obvious organomegaly exam demonstrates Courtney, with CBI ongoing Extremities no cyanosis clubbing or edema, cap refill brisk Skin no rash Neuro no obvious focal deficits. Urinary Catheter Management: 3-way Urethral CBI: Cath Placed During This Visit: yes Reason for Continuing Indwelling Catheter: Acute Urinary Retention or Obstruction Urinary Catheter Date of Insertion: 06/30/22 Urinary Catheter Time of Insertion: 08:00 Courtney: Cath Placed During This Visit: yes, but has since been removed by the nurse Reason for Continuing Indwelling Catheter: Decision to DC Catheter Urinary Catheter Date of Insertion: 06/30/22 Urinary Catheter Time of Insertion: 08:00 Date Urinary Catheter Removed: 06/30/22 Time Urinary Catheter Discontinued: 05:00 Data : 06/30/22 05:00 06/30/22 05:00 Other Labs: LFTs are within normal limits with the exception of alk phos of [address] at outside hospital demonstrated probable blood products in the bladder, right kidney pole mass, diffuse mixed lytic and sclerotic metastatic disease throughout osseous structures, COPD, pulmonary nodules and other incidental findings. Urinalysis which was performed demonstrated greater than 100 reds, 0-2 whites A&P Assessment and plan (1) Hematuria: Patient had clot retention, urinary retention. He is directly postoperative from urologic procedure with dilation, catheter placement, cystoscopy, clot irrigation He is currently undergoing CBI (2) Acute urinary retention: See above (3) Diabetes: Consistent carb diet Sliding scale insulin (4) Renal cancer: Recent diagnosis at [facility] with multiple metastasis described. Request records (5) Pulmonary embolism: Patient with past history of pulmonary embolism, years ago. Given the fact he has widespread cancer, it is likely a good idea to continue his anticoagulation if tolerated. Urology has approved the resumption of Eliquis. (6) Hypertension: Continue home medicines Plan Multiple other medical problems as outlined in past medical history Thank you for this consult Eliquis will suffice for DVT prophylaxis Consult Attestations Medical Necessity Statement: As per primary Coding Level of Care Code Acute Slab Polisher for Safia Beckman Diagnoses Hematuria R31.9 Acute urinary retention R33.8 Diabetes E11.9 Renal cancer C64.9 Pulmonary embolism I26.99 Hypertension I10
[2022-06-30 11:47] LABS: Glucose Point of Care 204 mg/dL (70-110)
--- NOTE | 2022-06-30 12:41 | ANE.PACU2 ---
Inpatient post-anesthesia follow up: Airway intact: Yes Vital signs: Temperature 97.8 F Pulse Rate 92 Respiratory Rate 18 Blood Pressure 149/90 Pulse Oximetry 96 Oxygen Delivery Me thod Room Air Oxygen Flow Rate 6 Fraction of Inspir ed Oxygen Hydration adequate: Yes Nausea and vomiting: No Pain level: 1 Mental status: Baseline
--- NOTE | 2022-06-30 12:42 | PC.PHAR ---
pt states he takes care of his own medications-pt states he is only taking his eliquis 5mg qpm rx filled 05/22/22 30d/s for 5mg bid text to let him know-pt states he is still taking metformin 500mg qam rx filled 02/13/22 90d/s-pt states he is not taking seroquel 100mg daily ext med history shows last filled 03/02/22 30d/s-notes are made in the pharmacy comments
[2022-06-30 16:50] LABS: Glucose Point of Care 209 mg/dL (70-110)
[2022-06-30] MEDS: insulin lispro 100 unit/1 mL SUBCUT ×2 (17:10→20:59)
[2022-06-30 20:07] LABS: Glucose Point of Care 196 mg/dL (70-110)
[2022-06-30] MEDS: HYDROcodone-acetaminophen 5-325 mg Tablet 1 TAB PO (20:58)
[2022-06-30] MEDS: apixaban 5 mg Tablet PO (20:59)
[2022-06-30] MEDS: trazodone 100 mg Tablet 300 MG PO (20:59)
[2022-07-01] VITALS (7 sets, daily range): BP systolic 121–149; BP diastolic 71–79; PULSE 80–102; RESP 14–18; TEMP 36.6–37.1; O2SAT 93–97
[2022-07-01 03:01] LABS: Basophils % 0.1 %; Eosinophils % 0.1 %; Hematocrit 28.5 % (42.0-52.0); Hemoglobin 9.1 g/dL (11.7-16.6); Lymphocytes % 7.5 %; Mean Corpuscular HGB Conc 31.9 g/dL (30.0-36.0); Mean Corpuscular Hemoglobin 28.3 pg (28.0-34.0); Mean Corpuscular Volume 88.8 fl (80-94); Mean Platelet Volume 10.1 fL (7.4-10.4); Monocytes # 1.2 10^3/uL (0.2-0.9); Monocytes % 8.6 %; Neutrophils # 11.21 10^3/uL (1.8-7.7); Neutrophils % 83.3 %; Nucleated Red Blood Cells % 0 %; Platelet Count 148 10^3/cmm (130-400); Red Blood Count 3.21 10^6/uL (4.1-5.3); Red Cell Distribution Width 14.6 % (12.1-15.1); White Blood Count 13.5 10^3/uL (4.0-10.0)
[2022-07-01 03:21] LABS: Blood Urea Nitrogen 21 mg/dL (8-23); Calcium 9.1 mg/dL (8.5-10.5); Carbon Dioxide 24 mmol/L (22-29); Chloride 102 mmol/L (98-107); Glucose 143 mg/dL (65-115); Osmolality Calculated 289 mOsm/kg (285-295); Sodium 137 mmol/L (136-145)
[2022-07-01 06:08] LABS: Glucose Point of Care 154 mg/dL (70-110)
[2022-07-01] MEDS: HYDROcodone-acetaminophen 5-325 mg Tablet 1 TAB PO ×2 (06:27→15:11)
--- NOTE | 2022-07-01 07:10 | PC.NURSE ---
Shift CBI summary- 8 3l bags administered via continuous bladder irrigation. Patient has tolerated well. There has been gross hematuria throughout shift after trying to slow CBI. Elliquis had been given last evening with urology clearance per consult reports and to be used as prophylaxis as well.
[2022-07-01] MEDS: docusate sodium 100 mg Capsule PO ×2 (09:40→17:11)
[2022-07-01] MEDS: quetiapine 100 mg Tablet PO (09:40)
[2022-07-01] MEDS: insulin lispro 100 unit/1 mL SUBCUT ×4 (09:40→20:59)
[2022-07-01] MEDS: amlodipine 10 mg Tablet PO (09:41)
[2022-07-01] MEDS: atorvastatin 40 mg Tablet PO (09:41)
[2022-07-01] MEDS: citalopram 20 mg Tablet 40 MG PO (09:41)
[2022-07-01] MEDS: metoprolol succinate ER (24 HR) 50 mg Tablet PO (09:41)
[2022-07-01] MEDS: ezetimibe 10 mg Tablet PO (09:41)
--- NOTE | 2022-07-01 09:47 | PM.PN ---
Subjective Subjective: Patient denies any complaints currently. It is apparent he has quite a bit of blood in his CBI bag currently. His Eliquis was started last night and he received 1 dose. Medications: Reviewed: Yes Vitals/I&O/Wt Last Vital Signs Temp 98.4 F 07/01/22 07:36 Pulse 102 H 07/01/22 07:36 Resp 17 07/01/22 07:36 BP 122/74 07/01/22 07:36 Pulse Ox 95 07/01/22 07:36 O2 Del Method 07/01/22 07:36 O2 Flow Rate 6 06/30/22 08:39 06/30/22 07/01/22 07/01/22 22:59 06:59 14:59 Intake Total 480 / 1680 240 / 1920 Balance 480 / -1345 240 / -1105 Weight last 48 hrs Weight 111.13 kg Weight 111.13 kg Physical Exam Narrative: General exam is no apparent distress Neck is supple no lymphadenopathy or thyromegaly Cardiovascular regular rate and rhythm without murmur, no S3 or S4 Lungs clear no wheezing or crackles Abdomen is soft, positive bowel sounds. No obvious organomegaly exam demonstrates Courtney, with CBI ongoing. Blood noted Extremities no cyanosis clubbing or edema, cap refill brisk Skin no rash Urinary Catheter Management: 3-way Urethral CBI: Cath Placed During This Visit: yes Reason for Continuing Indwelling Catheter: Acute Urinary Retention or Obstruction Urinary Catheter Date of Insertion: 06/30/22 Urinary Catheter Time of Insertion: 08:00 Courtney: Cath Placed During This Visit: yes, but has since been removed by the nurse Reason for Continuing Indwelling Catheter: Decision to DC Catheter Urinary Catheter Date of Insertion: 06/30/22 Urinary Catheter Time of Insertion: 08:00 Date Urinary Catheter Removed: 06/30/22 Time Urinary Catheter Discontinued: 05:00 Data : 07/01/22 02:20 07/01/22 02:20 A&P Assessment and plan (1) Hematuria: Patient had clot retention, urinary retention. He is directly postoperative day #1 from urologic procedure with dilation, catheter placement, cystoscopy, clot irrigation He is currently undergoing CBI He has quite a bit of blood in his bag today. I am going to discontinue his Eliquis. If this reduces significantly, could consider initiation of 2.5 mg twice daily. His past history of pulmonary embolism was distant. Certainly he has a significant higher risk of recurrent thromboembolism secondary to his malignancy. Check hemoglobin around 2 PM (2) Acute urinary retention: See above (3) Diabetes: Consistent carb diet Sliding scale insulin (4) Renal cancer: Recent diagnosis at [facility] with multiple metastasis described. Request records (5) Pulmonary embolism: Patient with past history of pulmonary embolism, years ago. Secondary to significant bleeding currently, discontinue Eliquis for the time being. SCDs for DVT prophylaxis. (6) Hypertension: Continue home medicines Plan Multiple other medical problems as outlined in past medical history Thank you for this consult SCDs for DVT prophylaxis currently. Eliquis discontinued secondary to significant bleeding. Attestations Medical Necessity Statement*: As per primary Coding Level of Care Code Acute Winter Intern for Safia Beckman Diagnoses Hematuria R31.9 Acute urinary retention R33.8 Diabetes E11.9 Renal cancer C64.9 Pulmonary embolism I26.99 Hypertension I10
[2022-07-01] MEDS: sodium chloride 0.9% 1,000 ML 30 ML IV (10:40)
[2022-07-01 10:52] LABS: Glucose Point of Care 190 mg/dL (70-110)
--- NOTE | 2022-07-01 10:58 | PC.CHAP ---
Pastoral Care Encounter/Spiritual Assessment Type of Contact [x] Declined extern visit [] Patient/Family/Request visit [] Outpatient visit [] Follow-up visit [] Physician referral [] Code/Alert [x] Routine visit [] Staff referral [] Actively dying [] Patient sleeping [] Family support [] [] Out of room [] Palliative care [] [x] Receiving care in room [] Pre-surgical visit [] Trauma [] Long length of stay [] ICU visit [] Other: Relational/Emotional Strength [] Patient feels connected with others/family/visitors/staff [] Distress [] Loneliness/isolation [] Abandonment Spirituality of Patient [] Person of Eden [] Attends [employer] of their [place] [] Believes in Prayer [] Reads Bible or Hindu materials [] There are Spiritual issues to be addressed Ep Specialist Interventions [] Prayer [] Active listening [] Non-anxious presence [] Spiritual/emotional support [] Crisis/trauma care [] Spiritual counseling [] Bereavement support [] Provided bereavement packet [] Provided Bible/devotional materials [] Provided toy/stuffed animal, coloring book to patient or family member [] Provided Communion [] Anointing/[place] [] Salvation [] Completed spiritual assessment [] Other: Impact on Illness or Injury [] Angry [] Fearful [] Anxious [] Often cries [] Exhaustion [] Unable to work [] Unable to attend yazdanism [] Unable to walk/stand [] Unable to read [] Unable to drive [] Unable to eat/drink [] Unable to sleep [] Unable to be with family [] Patient intubated [] Other: Summary declined visit Time spent with patient 5 mins
[2022-07-01] MEDS: psyllium powder Pkt 1 PACKET PO (11:57)
[2022-07-01 14:24] LABS: Hematocrit 25.4 % (42.0-52.0)
[2022-07-01] MEDS: morphine 4 mg/mL SDV 1 mL 2 MG IVP (15:16)
[2022-07-01 16:55] LABS: Glucose Point of Care 199 mg/dL (70-110)
--- NOTE | 2022-07-01 17:57 | PM.PN ---
Subjective Subjective: Urology follow-up, hospital day #2 Urine was remaining clear until this morning where it started becoming bloody again. Looks like it represents acute bleeding again most likely from the kidney. We do not have complete confidence that there is nothing in the bladder that would cause a bleeding based on the inability to completely examine the bladder with a small ureteroscope there was only thing that I can get into the bladder at time of catheter placement. No obvious mass that was seen on the noncontrasted CT scan and he clearly does have a large right upper pole renal mass. I spoke with his oncologist Dr. Pedrito James at [facility] who updated me on the underlying condition. Patient's diagnosis was metastatic lung cancer per biopsy in the renal mass was not considered to be much of a concern in the short-term. Plans were to start chemotherapy sometime next week. He had been seen the morning of his acute onset of bleeding and at that point he had had no symptoms at all related to the kidney mass. Patient has not seen urology yet at [facility] but there was a consult or least a conversation with Dr. Cristobal Champion urologist. I think the plan was leaning more toward nephrectomy as opposed to embolization based on the size of the mass. I spoke to his daughter. She was aware of most of the above information. She did mention also that the PE for which she had been on Eliquis was actually 8 years ago and apparently a lot of doctors in the interim had said that he probably did not need to be on it. With that I think makes a lot of sense obviously to hold the Eliquis moving forward. Dr. Beverly stopped with the recurrence of bleeding today. I think it would make sense to try to arrange a transfer to the hospitalist service at [facility] tomorrow and allow them to consult urology for management of his CBI and bleeding. More definitive plans obviously then can be made regarding the treatment of the renal mass. Dr. Ward stated that he would be available as needed for his portion of the care pending. Daughter was in agreement for transfer to [facility] as soon as space available Vitals/I&O/Wt Last Vital Signs Temp 97.8 F 07/01/22 15:29 Pulse 99 07/01/22 15:29 Resp 16 07/01/22 15:29 BP 130/76 07/01/22 15:29 Pulse Ox 93 11/03/22 15:29 O2 Del Method 07/01/22 15:29 O2 Flow Rate 6 06/30/22 08:39 07/01/22 07/01/22 07/01/22 06:59 14:59 22:59 Intake Total 240 / 1920 1399.5 / 1399.5 Balance 240 / -1105 1399.5 / 1399.5 Weight last 48 hrs Weight 245 lb Weight 245 lb Physical Exam Const: COMMON NORMALS: no acute distress, alert and well nourished GENERAL APPEARANCE: well kempt and well developed ORIENTATION/CONSCIOUSNESS: not confused HENMT: COMMON NORMALS: normocephalic HEAD & SCALP: normal to inspection and normocephalic Eye: COMMON NORMALS: conjunctivae normal and no scleral icterus CONJUNCTIVA: Yes conjunctivae normal Resp: COMMON NORMALS: normal respiratory effort EFFORT & INSPECTION: Yes able to speak in complete sentences, No labored and No Actively coughing : OTHER: Currently CBI is running clear with low flow rate. Earlier today when I checked it was pretty pink. Recommended manual irrigation some clots were turned but that looks to be completely resolved now. He is still at risk for recurrent bleeding though Extremity: OTHER: Good range of motion Neuro: COMMON NORMALS: no focal motor deficits SENSORIUM/ORIENTATION: Yes alert Psych: COMMON NORMALS: mental status grossly normal APPEARANCE: Yes grossly normal and Yes well kempt ATTITUDE: Yes calm and Yes engaged Skin: COMMON NORMALS: no rashes or lesions noted and no jaundice GENERAL SKIN EXAM: no rashes or lesions noted Urinary Catheter Management: 3-way Urethral CBI: Cath Placed During This Visit: yes Reason for Continuing Indwelling Catheter: Acute Urinary Retention or Obstruction Urinary Catheter Date of Insertion: 06/30/22 Urinary Catheter Time of Insertion: 08:00 Courtney: Cath Placed During This Visit: yes, but has since been removed by the nurse Reason for Continuing Indwelling Catheter: Decision to DC Catheter Urinary Catheter Date of Insertion: 06/30/22 Urinary Catheter Time of Insertion: 08:00 Date Urinary Catheter Removed: 06/30/22 Time Urinary Catheter Discontinued: 05:00 Data : 07/01/22 14:17 07/01/22 02:20 A&P Assessment and plan (1) Clot retention of urine: Clot removed. CBI seems to be working well with minimal manual irrigation. (2) Renal cancer: Full details not known but apparently is a heterogeneous enhancing mass in the right upper pole well identified on CT imaging previously before the noncontrast CT scan was performed at [facility]. See HPI for full discussion (3) Urethral injury: Related to malpositioning of Courtney catheter. Courtney catheter ultimately able to be positioned which should allow for complete healing. (4) False passage of urethra: See above Plan 1. Anticipate attempt at transfer to [facility] tomorrow if possible. We will try that for the transfer to hospitalist service and consultation with urology for CBI management and ultimate management of his renal mass. Attestations Medical Necessity Statement*: Continuing CBI requirement. Planning for transfer to [facility] when space available Coding Level of Care Code Acute Superintendent Automotive for g Fwd Diagnoses Clot retention of urine R33.8 Renal cancer C64.9 Urethral injury S37.30XA False passage of urethra N36.5
[2022-07-01 19:11] LABS: Hematocrit 24.2 % (42.0-52.0); Hemoglobin 7.5 g/dL (11.7-16.6)
[2022-07-01 20:32] LABS: Glucose Point of Care 212 mg/dL (70-110)
[2022-07-01] MEDS: trazodone 100 mg Tablet 300 MG PO (20:58)
[2022-07-02] VITALS (15 sets, daily range): BP systolic 100–162; BP diastolic 58–81; PULSE 52–84; RESP 12–19; TEMP 36.5–37.1; O2SAT 90–100
[2022-07-02] MEDS: sodium chloride 0.9% (100 ml) 100 ML 25 ML (00:44)
[2022-07-02 05:09] LABS: Basophils # 0.1 10^3/uL (0.0-0.1); Basophils % 0.4 %; Eosinophils # 0.5 10^3/uL (0.0-0.8); Eosinophils % 3.3 %; Hematocrit 26.6 % (42.0-52.0); Hemoglobin 8.4 g/dL (11.7-16.6); Lymphocytes # 2.1 10^3/uL (0.8-4.8); Lymphocytes % 15.2 %; Mean Corpuscular HGB Conc 31.6 g/dL (30.0-36.0); Mean Corpuscular Volume 88.7 fl (80-94); Monocytes % 7.5 %; Nucleated Red Blood Cells % 0 %; Platelet Count 130 10^3/cmm (130-400); Red Cell Distribution Width 14.9 % (12.1-15.1); White Blood Count 13.9 10^3/uL (4.0-10.0)
[2022-07-02] MEDS: HYDROcodone-acetaminophen 5-325 mg Tablet 1 TAB PO ×3 (05:24→18:25)
[2022-07-02 05:50] LABS: Anion Gap 14.1 (5-19); Blood Urea Nitrogen 24 mg/dL (8-23); Calcium 9.1 mg/dL (8.5-10.5); Carbon Dioxide 25 mmol/L (22-29); Chloride 104 mmol/L (98-107); Glucose 131 mg/dL (65-115); Osmolality Calculated 294 mOsm/kg (285-295); Potassium 4.1 mmol/L (3.5-5.1); Sodium 139 mmol/L (136-145)
[2022-07-02 06:36] LABS: Glucose Point of Care 152 mg/dL (70-110)
--- NOTE | 2022-07-02 06:45 | PC.NURSE ---
CBI shift summary- 10 3L bags of 0.9% normal saline has been administered via continuous irrigation. Clear pink with approximately 2 small clots noted throughout shift. Currently urine is clear light yellow tinge. Patient has not reported any discomfort at the catheter site. Patient also received blood this shift and he responded positively per Hgb lab value increase. Eliquis now on hold.
--- NOTE | 2022-07-02 07:57 | PM.PN ---
Subjective Subjective: Urine appears to have cleared significantly. Patient without complaints. States he did not sleep very good last night. Medications: Reviewed: Yes Vitals/I&O/Wt Last Vital Signs Temp 98.6 F 07/02/22 07:50 Pulse 83 07/02/22 07:50 Resp 15 07/02/22 07:50 BP 158/81 07/02/22 07:50 Pulse Ox 100 07/02/22 07:50 O2 Del Method 07/02/22 07:50 O2 Flow Rate 6 06/30/22 08:39 07/01/22 07/02/22 07/02/22 22:59 06:59 14:59 Intake Total 450 / 1849.5 Balance 450 / 1849.5 Weight last 48 hrs Weight 111.13 kg Physical Exam Narrative: General exam is no apparent distress Neck is supple no lymphadenopathy or thyromegaly Cardiovascular regular rate and rhythm without murmur, no S3 or S4 Lungs clear no wheezing or crackles Abdomen is soft, positive bowel sounds. No obvious organomegaly exam demonstrates Courtney, with CBI ongoing. Urine significantly clearer Extremities no cyanosis clubbing or edema, cap refill brisk Skin no rash Urinary Catheter Management: 3-way Urethral CBI: Cath Placed During This Visit: yes Reason for Continuing Indwelling Catheter: Acute Urinary Retention or Obstruction Urinary Catheter Date of Insertion: 06/30/22 Urinary Catheter Time of Insertion: 08:00 Courtney: Cath Placed During This Visit: yes, but has since been removed by the nurse Reason for Continuing Indwelling Catheter: Decision to DC Catheter Urinary Catheter Date of Insertion: 06/30/22 Urinary Catheter Time of Insertion: 08:00 Date Urinary Catheter Removed: 06/30/22 Time Urinary Catheter Discontinued: 05:00 Data : 07/02/22 04:55 07/02/22 04:55 A&P Assessment and plan (1) Hematuria: Patient had clot retention, urinary retention. He is directly postoperative day #2 from urologic procedure with dilation, catheter placement, cystoscopy, clot irrigation He is currently undergoing CBI He received 1 dose of Eliquis in the hospital, 5 mg. Considering his bleeding, this has been indefinitely discontinued. Risks and benefits of this discussed with the patient. Transfuse 1 unit packed red blood cells last night secondary to acute blood loss anemia from hematuria. Hemoglobin increased appropriately. Does not have apparent significant ongoing bleeding. (2) Acute urinary retention: See above Courtney was placed (3) Diabetes: Consistent carb diet Sliding scale insulin (4) Renal cancer: Recent diagnosis at [facility] with multiple metastasis described. Request records (5) Pulmonary embolism: Patient with past history of pulmonary embolism, years ago. Blood further after placement of Courtney. Likely bleeding is from renal tumor. Currently not candidate to continue Eliquis. Discussed with him risks regarding this. Discussed with him he is at increased risk secondary distant past history of pulmonary embolism, and now widespread malignancy. Discussed with him to watch for lower extremity edema, pain, shortness of breath, chest discomfort, hemoptysis. (6) Hypertension: Continue home medicines Plan Multiple other medical problems as outlined in past medical history Thank you for this consult SCDs for DVT prophylaxis currently. Eliquis discontinued secondary to significant bleeding. Attestations Medical Necessity Statement*: As per primary Coding Level of Care Code Acute Quality Control Expert for g Fwd Diagnoses Hematuria R31.9 Acute urinary retention R33.8 Diabetes E11.9 Renal cancer C64.9 Pulmonary embolism I26.99 Hypertension I10
[2022-07-02] MEDS: docusate sodium 100 mg Capsule PO ×2 (08:12→17:00)
[2022-07-02] MEDS: citalopram 20 mg Tablet 40 MG PO (08:12)
[2022-07-02] MEDS: insulin lispro 100 unit/1 mL SUBCUT ×3 (08:12→17:07)
[2022-07-02] MEDS: psyllium powder Pkt 1 PACKET PO (08:12)
[2022-07-02] MEDS: metoprolol succinate ER (24 HR) 50 mg Tablet PO (08:12)
[2022-07-02] MEDS: ezetimibe 10 mg Tablet PO (08:12)
[2022-07-02] MEDS: quetiapine 100 mg Tablet PO (08:13)
[2022-07-02] MEDS: atorvastatin 40 mg Tablet PO (08:13)
[2022-07-02] MEDS: morphine 4 mg/mL SDV 1 mL 2 MG IVP ×2 (08:21→14:12)
[2022-07-02] MEDS: sodium chloride 0.9% 1,000 ML 30 ML IV ×2 (11:01→21:15)
[2022-07-02 11:08] LABS: Glucose Point of Care 197 mg/dL (70-110)
[2022-07-02 14:57] LABS: Hematocrit 24.1 % (42.0-52.0); Hemoglobin 7.7 g/dL (11.7-16.6)
--- NOTE | 2022-07-02 15:30 | PM.PN ---
Subjective Subjective: Urology follow-up: His urine was looking really clear until later today where he started having more hematuria requiring both manual irrigation and CBI increase. Up until that time we are hoping that maybe we could in the absence of continued bleeding send him home with a catheter and maintain his outpatient schedule next week for follow-up with urology and oncology at [facility]. Multiple attempts were made to try and have him transferred to [facility] for completion of the care that has been initiated and planned there. No beds were available. With recurrent bleeding (he did receive 1 unit of blood) he is clearly not a candidate for discharge to home. We will continue CBI as needed, manual irrigation as needed, and hope that bleeding will stop the further he gets away from Eliquis use Medications: Reviewed: Yes Vitals/I&O/Wt Last Vital Signs Temp 97.8 F 07/02/22 11:29 Pulse 75 07/02/22 11:29 Resp 18 07/02/22 14:12 BP 162/62 07/02/22 11:29 Pulse Ox 91 07/02/22 11:29 O2 Del Method 07/02/22 11:29 O2 Flow Rate 6 06/30/22 08:39 07/02/22 07/02/22 07/02/22 06:59 14:59 22:59 Intake Total 450 / 1849.5 1090.5 / 1090.5 Balance 450 / 1849.5 1090.5 / 1090.5 Physical Exam Const: COMMON NORMALS: no acute distress, alert and well nourished GENERAL APPEARANCE: well kempt and well developed ORIENTATION/CONSCIOUSNESS: not confused Resp: COMMON NORMALS: normal respiratory effort EFFORT & INSPECTION: Yes able to speak in complete sentences, No labored and No Actively coughing Neuro: COMMON NORMALS: no focal motor deficits SENSORIUM/ORIENTATION: Yes alert Psych: COMMON NORMALS: mental status grossly normal APPEARANCE: Yes grossly normal and Yes well kempt ATTITUDE: Yes calm and Yes engaged Skin: COMMON NORMALS: no rashes or lesions noted and no jaundice GENERAL SKIN EXAM: no rashes or lesions noted Urinary Catheter Management: 3-way Urethral CBI: Cath Placed During This Visit: yes Reason for Continuing Indwelling Catheter: Acute Urinary Retention or Obstruction Urinary Catheter Date of Insertion: 06/30/22 Urinary Catheter Time of Insertion: 08:00 Courtney: Cath Placed During This Visit: yes, but has since been removed by the nurse Reason for Continuing Indwelling Catheter: Decision to DC Catheter Urinary Catheter Date of Insertion: 06/30/22 Urinary Catheter Time of Insertion: 08:00 Date Urinary Catheter Removed: 06/30/22 Time Urinary Catheter Discontinued: 05:00 Data : 07/02/22 14:40 07/02/22 04:55 A&P Assessment and plan (1) Renal cancer: Awaiting opening at [facility] for completion of evaluation regarding treatment of the renal mass. (2) Urethral injury: Indwelling Courtney catheter placed (3) False passage of urethra: (4) Clot retention of urine: We will continue aggressive management of the clot retention via CBI and manual irrigation. Attestations Medical Necessity Statement*: Requiring CBI. Coding Level of Care Code Acute Certified Phlebotomy Technician for Safia Beckman Diagnoses Renal cancer C64.9 Urethral injury S37.30XA False passage of urethra N36.5 Clot retention of urine R33.8
[2022-07-02 16:58] LABS: Glucose Point of Care 163 mg/dL (70-110)
[2022-07-02] MEDS: sodium chloride 0.9% (100 ml) 100 ML 50 ML (17:00)
[2022-07-02] MEDS: trazodone 100 mg Tablet 300 MG PO (20:21)
[2022-07-02 21:21] LABS: Glucose Point of Care 150 mg/dL (70-110)
[2022-07-03] VITALS (9 sets, daily range): BP systolic 108–156; BP diastolic 62–80; PULSE 68–79; RESP 16–20; TEMP 36.6–36.9; O2SAT 92–97
[2022-07-03] MEDS: HYDROcodone-acetaminophen 5-325 mg Tablet 1 TAB PO ×4 (03:21→22:52)
[2022-07-03] MEDS: morphine 4 mg/mL SDV 1 mL 2 MG IVP ×3 (04:19→19:54)
--- NOTE | 2022-07-03 05:06 | PC.NURSE ---
At this time pt is running at a moderate to slow drip. Having to readjust when output turns red on and off through out the night. No complaints of pain in suprapubic area nor have i had to irrigate. Rounding on patient done every 30-45 mins. Presence of one large clot in robbins the whole night. 9000ml irrigate instilled with approx 10,150ml out.
[2022-07-03 05:25] LABS: Basophils # 0.1 10^3/uL (0.0-0.1); Basophils % 0.6 %; Eosinophils # 0.6 10^3/uL (0.0-0.8); Eosinophils % 4.9 %; Hematocrit 28.1 % (42.0-52.0); Hemoglobin 9.1 g/dL (11.7-16.6); Lymphocytes # 1.4 10^3/uL (0.8-4.8); Lymphocytes % 12.1 %; Mean Corpuscular HGB Conc 32.4 g/dL (30.0-36.0); Mean Corpuscular Hemoglobin 28.9 pg (28.0-34.0); Mean Corpuscular Volume 89.2 fl (80-94); Mean Platelet Volume 10.1 fL (7.4-10.4); Monocytes # 0.9 10^3/uL (0.2-0.9); Monocytes % 7.4 %; Neutrophils # 8.72 10^3/uL (1.8-7.7); Neutrophils % 74.4 %; Nucleated Red Blood Cells % 0 %; Platelet Count 107 10^3/cmm (130-400); Red Blood Count 3.15 10^6/uL (4.1-5.3); Red Cell Distribution Width 14.7 % (12.1-15.1); White Blood Count 11.7 10^3/uL (4.0-10.0)
[2022-07-03 05:51] LABS: Anion Gap 11.8 (5-19); Blood Urea Nitrogen 22 mg/dL (8-23); Calcium 8.8 mg/dL (8.5-10.5); Carbon Dioxide 24 mmol/L (22-29); Chloride 101 mmol/L (98-107); Glucose 118 mg/dL (65-115); Osmolality Calculated 280 mOsm/kg (285-295); Potassium 3.8 mmol/L (3.5-5.1); Sodium 133 mmol/L (136-145)
[2022-07-03 07:35] LABS: Glucose Point of Care 127 mg/dL (70-110)
[2022-07-03] MEDS: ezetimibe 10 mg Tablet PO (08:26)
[2022-07-03] MEDS: docusate sodium 100 mg Capsule PO ×2 (08:26→17:06)
[2022-07-03] MEDS: metoprolol succinate ER (24 HR) 50 mg Tablet PO (08:26)
[2022-07-03] MEDS: atorvastatin 40 mg Tablet PO (08:26)
[2022-07-03] MEDS: citalopram 20 mg Tablet 40 MG PO (08:26)
[2022-07-03] MEDS: psyllium powder Pkt 1 PACKET PO (08:27)
[2022-07-03] MEDS: quetiapine 100 mg Tablet PO (08:27)
--- NOTE | 2022-07-03 10:09 | P.PN_ITS ---
Subjective Subjective: Urology follow-up: Hospital day #5 Still having intermittent bleeding but much better since last night. CBI rate is running low. Received another unit of blood last night. This morning's hemoglobin was 9.1. No chest pain shortness of breath significant discomfort. Multiple attempts at transfer to [facility] had failed. Backup plan is that if his catheter stays clear and he has no significant problems with catheter occlusion from bleeding we will plan on discharging him either tomorrow or the next day at home and do his follow-up with urology and oncology at [facility] on an outpatient basis. He is okay with that as long as he is not having difficulty with clot occlusion of the catheter. Vitals/I&O/Wt Last Vital Signs Temp 98.4 F 07/03/22 07:41 Pulse 74 07/03/22 07:41 Resp 16 07/03/22 07:41 BP 150/78 07/03/22 07:41 Pulse Ox 96 07/03/22 07:41 O2 Del Method 07/03/22 07:41 O2 Flow Rate 6 06/30/22 08:39 07/02/22 07/03/22 07/03/22 22:59 06:59 14:59 Intake Total 561.5 / 1892.0 850 / 2742.0 480 / 480 Output Total 200 / 200 Balance 361.5 / 1692.0 850 / 2542.0 480 / 480 Physical Exam Const: COMMON NORMALS: no acute distress, alert and well nourished GENERAL APPEARANCE: well kempt and well developed ORIENTATION/CONSCIOUSNESS: not confused Resp: COMMON NORMALS: normal respiratory effort EFFORT & INSPECTION: Yes able to speak in complete sentences, No labored and No Actively coughing : OTHER: Catheter is draining clear. No dental issues. Neuro: COMMON NORMALS: no focal motor deficits SENSORIUM/ORIENTATION: Yes alert Psych: COMMON NORMALS: mental status grossly normal APPEARANCE: Yes grossly normal and Yes well kempt ATTITUDE: Yes calm and Yes engaged Urinary Catheter Management: 3-way Urethral CBI: Cath Placed During This Visit: yes Reason for Continuing Indwelling Catheter: Other Urinary Catheter Date of Insertion: 06/30/22 Urinary Catheter Time of Insertion: 08:00 Courtney: Cath Placed During This Visit: yes, but has since been removed by the nurse Reason for Continuing Indwelling Catheter: Decision to DC Catheter Urinary Catheter Date of Insertion: 06/30/22 Urinary Catheter Time of Insertion: 08:00 Date Urinary Catheter Removed: 06/30/22 Time Urinary Catheter Discontinued: 05:00 Data : 07/03/22 04:33 07/03/22 04:33 Micro: Microbiology 07/02/22 17:56 Occult Blood (FIT) - Final Stool - Stool Aspirate A&P Assessment and plan (1) Clot retention of urine: Overall decreased bleeding and easier management of CBI and Courtney catheter. (2) Urethral injury: Significant injury to the bulbar urethra but was able to bridge with a Courtney catheter under anesthesia. (3) Renal cancer: Tentative plans for nephrectomy at [facility]. He had been worked up for metastatic lung cancer and part of the work-up did identify the right upper pole renal mass. Urology consult there was pending. He does have an appointment next week apparently with urology. (4) Hematuria: Improved Plan See HPI Attestations Medical Necessity Statement*: Continuing CBI. Coding Level of Care Code Acute [employer] Lead for Safia Beckman Diagnoses Clot retention of urine R33.8 Urethral injury S37.30XA Renal cancer C64.9 Hematuria R31.9
--- NOTE | 2022-07-03 10:28 | PC.SOCIAL ---
Pg 2 IMM Explained to pt Pg 2 IMM. No questions voiced. Provided pt a copy. Initialed, dated, & timed a copy & placed in chart.
[2022-07-03 11:07] LABS: Glucose Point of Care 195 mg/dL (70-110)
[2022-07-03] MEDS: insulin lispro 100 unit/1 mL SUBCUT ×2 (12:42→17:39)
--- NOTE | 2022-07-03 15:37 | P.PN_ITS ---
Subjective Subjective: Patient was seen and examined this morning, intermittent hematuria, received 1 unit PRBC last night, H&H this morning is: .09/25 Medications: Reviewed: Yes Medication Review Details: Generic Name Dose Route Start Last Admin Trade Name Freq PRN Reason Stop Dose Admin Hydrocodone Bitart /Acetaminophen 1 tab 06/30/22 10:31 07/03/22 09:34 Hydrocodone-Acet aminophen 5-325 Mg Tablet PO 1 tab Q6H PRN Administration MODERATE PAIN Atorvastatin Calci um 40 mg 07/01/22 09:00 07/03/22 08:26 Atorvastatin 40 Mg Tablet PO 40 mg DAILY HARRIET Administration Citalopram Hydrobr omide 40 mg 07/01/22 09:00 07/03/22 08:26 Citalopram 20 Mg Tablet PO 40 mg DAILY HARRIET Administration Docusate Sodium 100 mg 06/30/22 10:31 07/03/22 08:26 Docusate Sodium 100 Mg Capsule PO 100 mg BID HARRIET Administration Ezetimibe 10 mg 07/01/22 09:00 07/03/22 08:26 Ezetimibe 10 Mg Tablet PO 10 mg DAILY HARRIET Administration Sodium Chloride 1,000 mls @ 30 ml s/hr 06/30/22 10:31 07/02/22 21:15 Sodium Chloride 0.9% IV 30 mls/hr .Q24H HARRIET Administration Insulin Human Lisp ro 0 unit 06/30/22 12:00 07/03/22 12:42 Insulin Lispro 1 00 Unit/1 Ml SUBCUT 4 unit WM&BEDTIME HARRIET Administration Protocol Metoprolol Succina te 50 mg 07/01/22 09:00 07/03/22 08:26 Metoprolol Succi meme Er (24 Hr) 50 Mg Tablet PO 50 mg DAILY HARRIET Administration Morphine Sulfate 2 mg 07/01/22 10:42 07/03/22 10:28 Morphine 4 Mg/Ml Sdv 1 Ml IVP 2 mg Q4H PRN Administration SEVERE PAIN Psyllium Hydrophil ic Mucilloid 1 packet 07/01/22 10:45 07/03/22 08:27 Psyllium Powder Pkt PO 1 packet DAILY HARRIET Administration Quetiapine Fumarat e 100 mg 07/01/22 09:00 07/03/22 08:27 Quetiapine 100 M g Tablet PO 100 mg DAILY HARRIET Administration Trazodone HCl 300 mg 06/30/22 21:00 07/02/22 20:21 Trazodone 100 Mg Tablet PO 300 mg BEDTIME HARRIET Administration Vitals/I&O/Wt Last Vital Signs Temp 97.9 F 07/03/22 11:54 Pulse 79 07/03/22 11:54 Resp 17 07/03/22 11:54 BP 108/62 07/03/22 11:54 Pulse Ox 96 07/03/22 11:54 O2 Del Method 07/03/22 11:54 O2 Flow Rate 6 06/30/22 08:39 07/03/22 07/03/22 07/03/22 06:59 14:59 22:59 Intake Total 850 / 2742.0 600 / 600 Balance 850 / 2542.0 600 / 600 Physical Exam Const: COMMON NORMALS: patient oriented x3 Resp: COMMON NORMALS: clear to auscultation bilaterally AUSCULTATION: clear to auscultation bilaterally Cardio: COMMON NORMALS: regular rate, regular rhythm, S1 normal heart sound present, S2 normal heart sound present, No gallops present (Cardio), No murmurs present (Cardio), No rub (Cardio) and Peripheral pulses 2+ throughout RATE: regular rate RHYTHM: regular rhythm HEART SOUNDS: S1 normal heart sound present and S2 normal heart sound present PERIPHERAL PULSES: Peripheral pulses 2+ throughout GI: COMMON NORMALS: Normal to inspection, nondistended, normoactive bowel sounds present, Soft to palpation, non-tender, No hepatosplenomegaly present and no masses AUSCULTATION: Yes normoactive bowel sounds PALPATION: Yes Soft to palpation and Yes No hepatosplenomegaly present RECTAL EXAM: Yes deferred Extremity: COMMON NORMALS: no clubbing, cyanosis or edema and no pedal edema Neuro: COMMON NORMALS: patient oriented x3 Urinary Catheter Management: 3-way Urethral CBI: Cath Placed During This Visit: yes Reason for Continuing Indwelling Catheter: Other Urinary Catheter Date of Insertion: 06/30/22 Urinary Catheter Time of Insertion: 08:00 Courtney: Cath Placed During This Visit: yes, but has since been removed by the nurse Reason for Continuing Indwelling Catheter: Decision to DC Catheter Urinary Catheter Date of Insertion: 06/30/22 Urinary Catheter Time of Insertion: 08:00 Date Urinary Catheter Removed: 06/30/22 Time Urinary Catheter Discontinued: 05:00 Data : 07/03/22 04:33 07/03/22 04:33 Micro: Microbiology 07/02/22 17:56 Occult Blood (FIT) - Final Stool - Stool Aspirate A&P Assessment and plan (1) Hematuria: Patient had clot retention, urinary retention. He is directly postoperative day #2 from urologic procedure with dilation, catheter placement, cystoscopy, clot irrigation He is currently undergoing CBI He received 1 dose of Eliquis in the hospital, 5 mg. Considering his bleeding, this has been indefinitely discontinued. Risks and benefits of this discussed with the patient. Transfuse 1 unit packed red blood cells last night secondary to acute blood loss anemia from hematuria. Hemoglobin increased appropriately. Does not have apparent significant ongoing bleeding. (2) Acute urinary retention: See above Courtney was placed (3) Diabetes: Consistent carb diet Sliding scale insulin (4) Renal cancer: Recent diagnosis at [facility] with multiple metastasis described. Request records (5) Pulmonary embolism: Patient with past history of pulmonary embolism, years ago. Blood further after placement of Courtney. Likely bleeding is from renal tumor. Currently not candidate to continue Eliquis. Discussed with him risks regarding this. Discussed with him he is at increased risk secondary distant past history of pulmonary embolism, and now widespread malignancy. Discussed with him to watch for lower extremity edema, pain, shortness of breath, chest discomfort, hemoptysis. (6) Hypertension: Continue home medicines Plan SCDs for DVT prophylaxis currently. Eliquis discontinued secondary to significant bleeding. Attestations Medical Necessity Statement*: Per primary team. Coding Level of Care Code Acute Content Development Manager for Safia Beckman Diagnoses Hematuria R31.9 Acute urinary retention R33.8 Diabetes E11.9 Renal cancer C64.9 Pulmonary embolism I26.99 Hypertension I10
[2022-07-03 17:08] LABS: Glucose Point of Care 186 mg/dL (70-110)
[2022-07-03 20:42] LABS: Glucose Point of Care 108 mg/dL (70-110)
[2022-07-03] MEDS: trazodone 100 mg Tablet 300 MG PO (21:13)
[2022-07-04] VITALS (8 sets, daily range): BP systolic 126–159; BP diastolic 66–82; PULSE 57–82; RESP 16–18; TEMP 36.4–36.8; O2SAT 93–95
[2022-07-04] MEDS: ondansetron 2 mg/ML SDV 2 mL 4 MG IVP ×2 (02:18→09:13)
[2022-07-04] MEDS: HYDROcodone-acetaminophen 5-325 mg Tablet 1 TAB PO ×3 (04:40→22:26)
--- NOTE | 2022-07-04 06:21 | PC.NURSE ---
Patient had a good night, CBI ran moderate to slow alternating on and off through the night as color changed. Currently peachy pink output in color. No need for irrigation. 10,800ml irrigant in, and 11,525ml out at this time.
[2022-07-04 06:47] LABS: Glucose Point of Care 140 mg/dL (70-110)
[2022-07-04] MEDS: morphine 4 mg/mL SDV 1 mL 2 MG IVP (08:04)
[2022-07-04] MEDS: metoprolol succinate ER (24 HR) 50 mg Tablet PO (08:05)
[2022-07-04] MEDS: ezetimibe 10 mg Tablet PO (08:05)
[2022-07-04] MEDS: quetiapine 100 mg Tablet PO (08:05)
[2022-07-04] MEDS: citalopram 20 mg Tablet 40 MG PO (08:05)
[2022-07-04] MEDS: docusate sodium 100 mg Capsule PO ×2 (08:05→17:25)
[2022-07-04] MEDS: atorvastatin 40 mg Tablet PO (08:06)
--- NOTE | 2022-07-04 09:05 | P.PN_ITS ---
Subjective Subjective: Urology follow-up: Hospital day #6 Still requiring CBI. Manual irrigation also required at times for clots. No other significant progression of symptoms. Same dilemma with trying to get him transferred to an institution of higher level of care in order to deal with his renal mass. Will continue pursuing that. Currently we cannot discharge him given his persistent requirement for CBI Medications: Reviewed: Yes Vitals/I&O/Wt Last Vital Signs Temp 97.9 F 07/04/22 07:25 Pulse 72 07/04/22 07:25 Resp 16 07/04/22 08:04 BP 126/75 07/04/22 07:25 Pulse Ox 94 07/04/22 07:25 O2 Del Method 07/04/22 07:25 O2 Flow Rate 6 06/30/22 08:39 07/03/22 07/04/22 07/04/22 23:59 06:59 14:59 Intake Total Output Total Balance Physical Exam Const: COMMON NORMALS: no acute distress, alert and well nourished GENERAL APPEARANCE: well kempt and well developed ORIENTATION/CONSCIOUSNESS: not confused Resp: COMMON NORMALS: normal respiratory effort EFFORT & INSPECTION: Yes able to speak in complete sentences, No labored and No Actively coughing : OTHER: Urine is clear to light pink. Still requiring CBI Currently without clots but has required irrigation with clot extraction period ically Neuro: COMMON NORMALS: no focal motor deficits SENSORIUM/ORIENTATION: Yes alert Psych: COMMON NORMALS: mental status grossly normal APPEARANCE: Yes grossly normal and Yes well kempt ATTITUDE: Yes calm and Yes engaged Urinary Catheter Management: 3-way Urethral CBI: Cath Placed During This Visit: yes Reason for Continuing Indwelling Catheter: Required Immobilization for Trauma or Surgery or Anesthesia Urinary Catheter Date of Insertion: 06/30/22 Urinary Catheter Time of Insertion: 08:00 Courtney: Cath Placed During This Visit: yes, but has since been removed by the nurse Reason for Continuing Indwelling Catheter: Decision to DC Catheter Urinary Catheter Date of Insertion: 06/30/22 Urinary Catheter Time of Insertion: 08:00 Date Urinary Catheter Removed: 06/30/22 Time Urinary Catheter Discontinued: 05:00 Data : 07/03/22 04:33 07/03/22 04:33 A&P Assessment and plan (1) Renal cancer: Appears to be the most likely source of his ongoing hematuria. (2) Urethral injury: Secondary to catheter malposition initially but able eventually to obtain a bridging catheter beyond the injury. (3) Hematuria: (4) False passage of urethra: (5) Clot retention of urine: Plan Have recommended transfer to [facility] where he has been evaluated for treatment of his right renal mass as well as his metastatic lung cancer. Currently there have been no beds available. He does need a transfer to higher care for dealing with the kidney mass. Attestations Medical Necessity Statement*: Still requiring CBI. Have been unsuccessful in achieving permission for transfer to [facility] where his care for his metastatic lung cancer as well as right renal mass has been planned. We will continue trying for transfer Coding Level of Care Code Acute Yarding And Folding Machine Operator for [facility] Fwd Diagnoses Renal cancer C64.9 Urethral injury S37.30XA Hematuria R31.9 False passage of urethra N36.5 Clot retention of urine R33.8
[2022-07-04 11:46] LABS: Glucose Point of Care 152 mg/dL (70-110)
[2022-07-04] MEDS: lactulose oral liq 20 gm/30 mL UDC PO (12:56)
--- NOTE | 2022-07-04 16:04 | PC.NURSE ---
Bath Pt refused bed bath at this time but maureen care done/ [facility].
--- NOTE | 2022-07-04 16:51 | PM.PN ---
Subjective Subjective: Patient was seen and examined this morning, continues to have intermittent hematuria, on CBI. Medications: Reviewed: Yes Medication Review Details: Generic Name Dose Route Start Last Admin Trade Name Freq PRN Reason Stop Dose Admin Hydrocodone Bitart /Acetaminophen 1 tab 06/30/22 10:31 07/04/22 13:07 Hydrocodone-Acet aminophen 5-325 Mg Tablet PO 1 tab Q6H PRN Administration MODERATE PAIN Atorvastatin Calci um 40 mg 07/01/22 09:00 07/04/22 08:06 Atorvastatin 40 Mg Tablet PO 40 mg DAILY HARRIET Administration Citalopram Hydrobr omide 40 mg 07/01/22 09:00 07/04/22 08:05 Citalopram 20 Mg Tablet PO 40 mg DAILY HARRIET Administration Docusate Sodium 100 mg 06/30/22 10:31 07/04/22 08:05 Docusate Sodium 100 Mg Capsule PO 100 mg BID HARRIET Administration Ezetimibe 10 mg 07/01/22 09:00 07/04/22 08:05 Ezetimibe 10 Mg Tablet PO 10 mg DAILY HARRIET Administration Sodium Chloride 1,000 mls @ 30 ml s/hr 06/30/22 10:31 07/04/22 01:13 CS T Sodium Chloride 0.9% IV Infused .Q24H HARRIET Infusion Insulin Human Lisp ro 0 unit 06/30/22 12:00 07/04/22 13:11 Insulin Lispro 1 00 Unit/1 Ml SUBCUT Not Given WM&BEDTIME [facility] Protocol Lactulose 20 gm 07/04/22 11:30 07/04/22 12:56 Lactulose Oral L iq 20 Gm/30 Ml Udc PO 20 gm Q12H HARRIET Administration Metoprolol Succina te 50 mg 07/01/22 09:00 07/04/22 08:05 Metoprolol Succi meme Er (24 Hr) 50 Mg Tablet PO 50 mg DAILY HARRIET Administration Morphine Sulfate 2 mg 07/01/22 10:42 07/04/22 08:04 Morphine 4 Mg/Ml Sdv 1 Ml IVP 2 mg Q4H PRN Administration SEVERE PAIN Ondansetron HCl 4 mg 07/04/22 02:10 07/04/22 09:13 Ondansetron 2 Mg /Ml Sdv 2 Ml IVP 4 mg Q4H PRN Administration NAUSEA AND VOMITI NG Psyllium Hydrophil ic Mucilloid 1 packet 07/01/22 10:45 07/04/22 08:07 Psyllium Powder Pkt PO Not Given DAILY HARRIET Quetiapine Fumarat e 100 mg 07/01/22 09:00 07/04/22 08:05 Quetiapine 100 M g Tablet PO 100 mg DAILY HARRIET Administration Trazodone HCl 300 mg 06/30/22 21:00 07/03/22 21:13 Trazodone 100 Mg Tablet PO 300 mg BEDTIME HARRIET Administration Vitals/I&O/Wt Last Vital Signs Temp 98.3 F 07/04/22 16:00 Pulse 80 07/04/22 16:00 Resp 18 07/04/22 16:00 BP 151/82 07/04/22 16:00 Pulse Ox 94 07/04/22 16:00 O2 Del Method 07/04/22 16:00 O2 Flow Rate 6 06/30/22 08:39 07/04/22 07/04/22 07/04/22 06:59 14:59 22:59 Intake Total 120 / 120 Output Total Balance 120 / 120 Physical Exam Const: COMMON NORMALS: patient oriented x3 Resp: COMMON NORMALS: clear to auscultation bilaterally AUSCULTATION: clear to auscultation bilaterally Cardio: COMMON NORMALS: regular rate, regular rhythm, S1 normal heart sound present, S2 normal heart sound present, No gallops present (Cardio), No murmurs present (Cardio), No rub (Cardio) and Peripheral pulses 2+ throughout RATE: regular rate RHYTHM: regular rhythm HEART SOUNDS: S1 normal heart sound present and S2 normal heart sound present PERIPHERAL PULSES: Peripheral pulses 2+ throughout GI: COMMON NORMALS: Normal to inspection, nondistended, normoactive bowel sounds present, Soft to palpation, non-tender, No hepatosplenomegaly present and no masses AUSCULTATION: Yes normoactive bowel sounds PALPATION: Yes Soft to palpation and Yes No hepatosplenomegaly present RECTAL EXAM: Yes deferred Extremity: COMMON NORMALS: no clubbing, cyanosis or edema and no pedal edema Neuro: COMMON NORMALS: patient oriented x3 Urinary Catheter Management: 3-way Urethral CBI: Cath Placed During This Visit: yes Reason for Continuing Indwelling Catheter: Required Immobilization for Trauma or Surgery or Anesthesia Urinary Catheter Date of Insertion: 06/30/22 Urinary Catheter Time of Insertion: 08:00 Courtney: Cath Placed During This Visit: yes, but has since been removed by the nurse Reason for Continuing Indwelling Catheter: Decision to DC Catheter Urinary Catheter Date of Insertion: 06/30/22 Urinary Catheter Time of Insertion: 08:00 Date Urinary Catheter Removed: 06/30/22 Time Urinary Catheter Discontinued: 05:00 Data : 07/03/22 04:33 07/03/22 04:33 A&P Assessment and plan (1) Hematuria: Patient had clot retention, urinary retention. He is directly postoperative day #2 from urologic procedure with dilation, catheter placement, cystoscopy, clot irrigation He is currently undergoing CBI He received 1 dose of Eliquis in the hospital, 5 mg. Considering his bleeding, this has been indefinitely discontinued. Risks and benefits of this discussed with the patient. Transfuse 1 unit packed red blood cells last night secondary to acute blood loss anemia from hematuria. Hemoglobin increased appropriately. Does not have apparent significant ongoing bleeding. (2) Acute urinary retention: See above Courtney was placed (3) Diabetes: Consistent carb diet Sliding scale insulin (4) Renal cancer: Recent diagnosis at [facility] with multiple metastasis described. Request records (5) Pulmonary embolism: Patient with past history of pulmonary embolism, years ago. Blood further after placement of Courtney. Likely bleeding is from renal tumor. Currently not candidate to continue Eliquis. Discussed with him risks regarding this. Discussed with him he is at increased risk secondary distant past history of pulmonary embolism, and now widespread malignancy. Discussed with him to watch for lower extremity edema, pain, shortness of breath, chest discomfort, hemoptysis. (6) Hypertension: Continue home medicines Plan SCDs for DVT prophylaxis currently. Eliquis discontinued secondary to significant bleeding. 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
[2022-07-04 16:55] LABS: Glucose Point of Care 178 mg/dL (70-110)
[2022-07-04] MEDS: insulin lispro 100 unit/1 mL SUBCUT (17:25)
--- NOTE | 2022-07-04 19:33 | PC.NURSE ---
NS running at 30 ml/hr at this time per order.
--- NOTE | 2022-07-04 20:14 | PC.NURSE ---
Daughter Maria Elena called stating no one is calling me with updates. I haven't heard anything from a doctor. No one is telling me where we are at. She voices concern that patient is not eating or drinking. She also states, he's been waiting for a bed at [facility] for 5 days, I don't understand why they still don't have a bed for him. He needs to be with his cancer doctors that know him. She states she will be here around 10 am in the morning. She stated that if she did not make it here before the doctor rounds that she would like for the doctor to call her. Her phone number is [phone].
[2022-07-04 20:49] LABS: Glucose Point of Care 142 mg/dL (70-110)
[2022-07-04] MEDS: sodium chloride 0.9% 1,000 ML 50 ML IV (22:25)
[2022-07-05] VITALS (7 sets, daily range): BP systolic 137–155; BP diastolic 76–84; PULSE 54–90; RESP 17–19; TEMP 36.5–36.9; O2SAT 94–97
--- NOTE | 2022-07-05 02:34 | PC.NURSE ---
Per [facility] transfer center, there are no beds available for patient. [facility] staff stated we usually know about our discharges around 10 am so you can call back around then.
[2022-07-05 02:37] LABS: Basophils % 0.3 %; Eosinophils # 0.4 10^3/uL (0.0-0.8); Eosinophils % 3.4 %; Hematocrit 27.7 % (42.0-52.0); Hemoglobin 8.9 g/dL (11.7-16.6); Lymphocytes # 1.1 10^3/uL (0.8-4.8); Lymphocytes % 10.6 %; Mean Corpuscular HGB Conc 32.1 g/dL (30.0-36.0); Mean Corpuscular Hemoglobin 28.9 pg (28.0-34.0); Mean Corpuscular Volume 89.9 fl (80-94); Mean Platelet Volume 10.3 fL (7.4-10.4); Monocytes # 0.8 10^3/uL (0.2-0.9); Monocytes % 7.7 %; Neutrophils # 7.96 10^3/uL (1.8-7.7); Neutrophils % 77.4 %; Nucleated Red Blood Cells % 0 %; Platelet Count 104 10^3/cmm (130-400); Red Blood Count 3.08 10^6/uL (4.1-5.3); Red Cell Distribution Width 15.1 % (12.1-15.1); White Blood Count 10.3 10^3/uL (4.0-10.0)
[2022-07-05 02:57] LABS: Anion Gap 13.8 (5-19); Blood Urea Nitrogen 16 mg/dL (8-23); Calcium 8.9 mg/dL (8.5-10.5); Carbon Dioxide 25 mmol/L (22-29); Chloride 103 mmol/L (98-107); Glucose 128 mg/dL (65-115); Osmolality Calculated 289 mOsm/kg (285-295); Potassium 3.8 mmol/L (3.5-5.1); Sodium 138 mmol/L (136-145)
--- NOTE | 2022-07-05 03:16 | ECG_ITS ---
[facility] Test Date: 2022-07-05 Pat Name: Earnest Kumar Department: Room: 269 Gender: Male Director Funds Development: : 1950 Requested By: Gerri Schultz Order Number: [id number] Tan MD: Anne Samuels M.D. Measurements Intervals Albert Rate: 83 P: 20 WV: 138 QRS: 34 QRSD: 117 T: 31 QT: 425 QTc: 500 Interpretive Statements SINUS RHYTHM WITH FREQUENT VENTRICULAR PREMATURE COMPLEXES MODERATE INTRAVENTRICULAR CONDUCTION DELAY [110+ ms QRS DURATION] NONSPECIFIC ST & T-WAVE ABNORMALITY PROLONGED QT INTERVAL No previous ECG available for comparison Electronically Signed On 07-06-2022 12:04:56 SENIOR BUSINESS DEVELOPMENT MANAGER by Anne Samuels M.D. [email or web address]/store/[id number] f
[2022-07-05] MEDS: ondansetron 2 mg/ML SDV 2 mL 4 MG IVP ×2 (03:23→20:03)
--- NOTE | 2022-07-05 03:30 | PC.NURSE ---
Patient c/o shortness of breath. Oxygen saturation 94 percent on room air. Patient placed on pvc monitor and multiple PVCs noted. Dr. Scuhltz notified. Troponin series and EKG x1 ordered.
[2022-07-05 03:52] LABS: Troponin(5th) Baseline 49 ng/L (0-15)
[2022-07-05 04:44] LABS: Troponin 5 2HR 47.83 ng/L (0-15)
[2022-07-05 04:49] LABS: Troponin 5 2HR Delta -1.17 ABS# (0-10)
[2022-07-05 06:42] LABS: Glucose Point of Care 139 mg/dL (70-110)
[2022-07-05] MEDS: citalopram 20 mg Tablet 40 MG PO (07:40)
[2022-07-05] MEDS: quetiapine 100 mg Tablet PO (07:40)
[2022-07-05] MEDS: metoprolol succinate ER (24 HR) 50 mg Tablet PO (07:40)
[2022-07-05] MEDS: atorvastatin 40 mg Tablet PO (07:40)
[2022-07-05] MEDS: ezetimibe 10 mg Tablet PO (07:40)
[2022-07-05] MEDS: morphine 4 mg/mL SDV 1 mL 2 MG IVP (08:35)
[2022-07-05 08:59] LABS: Troponin 5 6HR 45.14 ng/L (0-15)
[2022-07-05 09:09] LABS: Troponin 5 6HR Delta -3.86 ng/L (0-12)
--- NOTE | 2022-07-05 10:50 | PC.SOCIAL ---
IMM Update pg 2 of IMM updated and reviewed w/ patient. Copy provided. Copy in chart dated and initialed.
[2022-07-05 10:51] LABS: Glucose Point of Care 177 mg/dL (70-110)
--- NOTE | 2022-07-05 11:56 | PM.PN ---
Subjective Subjective: Urology follow-up note: Hospital day #7 Overall less requirement for aggressive CBI or manual irrigation. I irrigated his bladder this morning and there were no clots of any consequence. CBI was turned off and he was encouraged to drink a lot of fluids to help try to keep his urine output brisk and we will see if that will be enough to maintain clarity and catheter function. There is some possibility that he may be able to get into the [place] tertiary center which could be used as a backup plan to [facility]. There has been no movement as far as open beds at [facility] to date. His family has been pursuing alternatives. Medications: Reviewed: Yes Vitals/I&O/Wt Last Vital Signs Temp 97.7 F 07/05/22 11:26 Pulse 90 07/05/22 11:26 Resp 17 07/05/22 11:26 BP 147/82 07/05/22 11:26 Pulse Ox 95 07/05/22 11:26 O2 Del Method 07/05/22 11:26 O2 Flow Rate 6 06/30/22 08:39 07/04/22 07/05/22 07/05/22 22:59 06:59 14:59 Intake Total 120 / 240 120 / 360 240 / 240 Output Total 1825 / 1825 Balance 120 / 240 -1705 / -1465 240 / 240 Physical Exam Const: COMMON NORMALS: no acute distress, alert and well nourished GENERAL APPEARANCE: well kempt and well developed ORIENTATION/CONSCIOUSNESS: not confused Resp: COMMON NORMALS: normal respiratory effort EFFORT & INSPECTION: Yes able to speak in complete sentences, No labored and No Actively coughing : OTHER: Urine is clear today. Minimal CBI running Irrigated without clots Neuro: COMMON NORMALS: no focal motor deficits SENSORIUM/ORIENTATION: Yes alert Psych: COMMON NORMALS: mental status grossly normal APPEARANCE: Yes grossly normal and Yes well kempt ATTITUDE: Yes calm and Yes engaged Urinary Catheter Management: 3-way Urethral CBI: Cath Placed During This Visit: yes Reason for Continuing Indwelling Catheter: Acute Urinary Retention or Obstruction Urinary Catheter Date of Insertion: 06/30/22 Urinary Catheter Time of Insertion: 08:00 Courtney: Cath Placed During This Visit: yes, but has since been removed by the nurse Reason for Continuing Indwelling Catheter: Decision to DC Catheter Urinary Catheter Date of Insertion: 06/30/22 Urinary Catheter Time of Insertion: 08:00 Date Urinary Catheter Removed: 06/30/22 Time Urinary Catheter Discontinued: 05:00 Data : 07/05/22 01:59 07/05/22 01:59 A&P Assessment and plan (1) Urethral injury: (2) Renal cancer: (3) Clot retention of urine: (4) Acute urinary retention: Plan 1. Continue pursuing transfer options 2. Stop CBI today, increase fluid intake, see if he can manage with no CBI running. 3. If can manage without CBI we can discharge to home and encourage has scheduled follow-up at [facility] for dealing with the renal mass as well as the metastatic lung cancer. Attestations Medical Necessity Statement*: Until now has required persistent CBI. We will see if that can be weaned off today. Coding Level of Care Code Acute Training And Development Director for [facility] Diagnoses Urethral injury S37.30XA Renal cancer C64.9 Clot retention of urine R33.8 Acute urinary retention R33.8
[2022-07-05] MEDS: insulin lispro 100 unit/1 mL SUBCUT ×3 (12:17→21:09)
--- NOTE | 2022-07-05 15:03 | PM.PN ---
Subjective Subjective: Patient was seen and examined this morning, CBI has been discontinued, patient is being encouraged to increase the oral fluid intake. Medications: Reviewed: Yes Medication Review Details: Generic Name Dose Route Start Last Admin Trade Name Freq PRN Reason Stop Dose Admin Hydrocodone Bitart /Acetaminophen 1 tab 06/30/22 10:31 07/04/22 13:07 Hydrocodone-Acet aminophen 5-325 Mg Tablet PO 1 tab Q6H PRN Administration MODERATE PAIN Atorvastatin Calci um 40 mg 07/01/22 09:00 07/04/22 08:06 Atorvastatin 40 Mg Tablet PO 40 mg DAILY HARRIET Administration Citalopram Hydrobr omide 40 mg 07/01/22 09:00 07/04/22 08:05 Citalopram 20 Mg Tablet PO 40 mg DAILY HARRIET Administration Docusate Sodium 100 mg 06/30/22 10:31 07/04/22 08:05 Docusate Sodium 100 Mg Capsule PO 100 mg BID HARRIET Administration Ezetimibe 10 mg 07/01/22 09:00 07/04/22 08:05 Ezetimibe 10 Mg Tablet PO 10 mg DAILY HARRIET Administration Sodium Chloride 1,000 mls @ 30 ml s/hr 06/30/22 10:31 07/04/22 01:13 CS T Sodium Chloride 0.9% IV Infused .Q24H HARRIET Infusion Insulin Human Lisp ro 0 unit 06/30/22 12:00 07/04/22 13:11 Insulin Lispro 1 00 Unit/1 Ml SUBCUT Not Given WM&BEDTIME [facility] Protocol Lactulose 20 gm 07/04/22 11:30 07/04/22 12:56 Lactulose Oral L iq 20 Gm/30 Ml Udc PO 20 gm Q12H HARRIET Administration Metoprolol Succina te 50 mg 07/01/22 09:00 07/04/22 08:05 Metoprolol Succi meme Er (24 Hr) 50 Mg Tablet PO 50 mg DAILY HARRIET Administration Morphine Sulfate 2 mg 07/01/22 10:42 07/04/22 08:04 Morphine 4 Mg/Ml Sdv 1 Ml IVP 2 mg Q4H PRN Administration SEVERE PAIN Ondansetron HCl 4 mg 07/04/22 02:10 07/04/22 09:13 Ondansetron 2 Mg /Ml Sdv 2 Ml IVP 4 mg Q4H PRN Administration NAUSEA AND VOMITI NG Psyllium Hydrophil ic Mucilloid 1 packet 07/01/22 10:45 07/04/22 08:07 Psyllium Powder Pkt PO Not Given DAILY HARRIET Quetiapine Fumarat e 100 mg 07/01/22 09:00 07/04/22 08:05 Quetiapine 100 M g Tablet PO 100 mg DAILY HARRIET Administration Trazodone HCl 300 mg 06/30/22 21:00 07/03/22 21:13 Trazodone 100 Mg Tablet PO 300 mg BEDTIME HARRIET Administration Vitals/I&O/Wt Last Vital Signs Temp 97.7 F 07/05/22 11:26 Pulse 90 07/05/22 11:26 Resp 17 07/05/22 11:26 BP 147/82 07/05/22 11:26 Pulse Ox 95 07/05/22 11:26 O2 Del Method 07/05/22 11:26 O2 Flow Rate 6 06/30/22 08:39 07/05/22 07/05/22 07/05/22 06:59 14:59 22:59 Intake Total 120 / 360 240 / 240 Output Total 1825 / 1825 Balance -1705 / -1465 240 / 240 Physical Exam Const: COMMON NORMALS: patient oriented x3 Resp: COMMON NORMALS: clear to auscultation bilaterally AUSCULTATION: clear to auscultation bilaterally Cardio: COMMON NORMALS: regular rate, regular rhythm, S1 normal heart sound present, S2 normal heart sound present, No gallops present (Cardio), No murmurs present (Cardio), No rub (Cardio) and Peripheral pulses 2+ throughout RATE: regular rate RHYTHM: regular rhythm HEART SOUNDS: S1 normal heart sound present and S2 normal heart sound present PERIPHERAL PULSES: Peripheral pulses 2+ throughout GI: COMMON NORMALS: Normal to inspection, nondistended, normoactive bowel sounds present, Soft to palpation, non-tender, No hepatosplenomegaly present and no masses AUSCULTATION: Yes normoactive bowel sounds PALPATION: Yes Soft to palpation and Yes No hepatosplenomegaly present RECTAL EXAM: Yes deferred Extremity: COMMON NORMALS: no clubbing, cyanosis or edema and no pedal edema Neuro: COMMON NORMALS: patient oriented x3 Urinary Catheter Management: 3-way Urethral CBI: Cath Placed During This Visit: yes Reason for Continuing Indwelling Catheter: Acute Urinary Retention or Obstruction Urinary Catheter Date of Insertion: 06/30/22 Urinary Catheter Time of Insertion: 08:00 Courtney: Cath Placed During This Visit: yes, but has since been removed by the nurse Reason for Continuing Indwelling Catheter: Decision to DC Catheter Urinary Catheter Date of Insertion: 06/30/22 Urinary Catheter Time of Insertion: 08:00 Date Urinary Catheter Removed: 06/30/22 Time Urinary Catheter Discontinued: 05:00 Data : 07/05/22 01:59 07/05/22 01:59 A&P Assessment and plan (1) Hematuria: Patient had clot retention, urinary retention. He is directly postoperative day #2 from urologic procedure with dilation, catheter placement, cystoscopy, clot irrigation He is currently undergoing CBI He received 1 dose of Eliquis in the hospital, 5 mg. Considering his bleeding, this has been indefinitely discontinued. Risks and benefits of this discussed with the patient. Transfuse 1 unit packed red blood cells last night secondary to acute blood loss anemia from hematuria. Hemoglobin increased appropriately. Does not have apparent significant ongoing bleeding. (2) Acute urinary retention: See above Courtney was placed (3) Diabetes: Consistent carb diet Sliding scale insulin (4) Renal cancer: Recent diagnosis at [facility] with multiple metastasis described. Request records (5) Pulmonary embolism: Patient with past history of pulmonary embolism, years ago. Blood further after placement of Courtney. Likely bleeding is from renal tumor. Currently not candidate to continue Eliquis. Discussed with him risks regarding this. Discussed with him he is at increased risk secondary distant past history of pulmonary embolism, and now widespread malignancy. Discussed with him to watch for lower extremity edema, pain, shortness of breath, chest discomfort, hemoptysis. (6) Hypertension: Continue home medicines Plan SCDs for DVT prophylaxis currently. Eliquis discontinued secondary to significant bleeding. Attestations Medical Necessity Statement*: Per primary team. Coding Level of Care Code Acute [employer] for [employer] Fwd Diagnoses Hematuria R31.9 Acute urinary retention R33.8 Diabetes E11.9 Renal cancer C64.9 Pulmonary embolism I26.99 Hypertension I10
[2022-07-05 16:53] LABS: Glucose Point of Care 163 mg/dL (70-110)
[2022-07-05] MEDS: HYDROcodone-acetaminophen 5-325 mg Tablet 1 TAB PO (20:03)
[2022-07-05 20:54] LABS: Glucose Point of Care 157 mg/dL (70-110)
[2022-07-05] MEDS: temazepam 15 mg Capsule PO (21:07)
[2022-07-05] MEDS: phenazopyridine 100 mg Tablet 200 MG PO (21:07)
[2022-07-05] MEDS: trazodone 100 mg Tablet 300 MG PO (21:07)
[2022-07-05] MEDS: oxybutynin 5 mg Tablet PO (21:08)
--- NOTE | 2022-07-05 22:08 | PC.NURSE ---
Dr. Cason notified that patient was experiencing bladder spasm pain and difficulty sleeping. Physician ordered oxybutynin and pyridium, as well as ambien prn for sleep.
[2022-07-06] MEDS: zolpidem 5 mg Tablet PO (00:06)
[2022-07-06] MEDS: HYDROcodone-acetaminophen 5-325 mg Tablet 1 TAB PO ×2 (02:42→11:50)
[2022-07-06] MEDS: sodium chloride 0.9% 1,000 ML 50 ML IV (02:43)
[2022-07-06] MEDS: phenazopyridine 100 mg Tablet 200 MG PO ×2 (03:50→11:50)
[2022-07-06 04:00] VITALS: BP 124/72; PULSE 83; RESP 15; TEMP 36.8; O2SAT 95
[2022-07-06] MEDS: levoFLOXacin 500 mg Tablet PO (06:34)
[2022-07-06 06:40] LABS: Glucose Point of Care 150 mg/dL (70-110)
[2022-07-06 07:42] VITALS: BP 137/88; PULSE 84; RESP 17; TEMP 36.7; O2SAT 96
--- NOTE | 2022-07-06 07:46 | PM.DCS ---
Discharge Providers Date of Admission: 06/30/22 09:40 Date of Discharge: July 06, 2022 Attending Provider at Admission: Monico Cason MD Attending Provider at Discharge: Monico Cason MD Consults: Hospitalist team Diagnoses at Discharge Discharge Diagnosis (1) Hematuria: Status: Acute Qualifiers: Hematuria type: gross Qualified Code(s): R31.0 - Gross hematuria (2) Acute urinary retention: Status: Acute (3) Diabetes: Status: Acute (4) Renal cancer: Status: Chronic (5) Hypertension: Status: Acute (6) Urethral injury: Status: Acute Reason for Visit Reason for Visit: Clot urinary retention, urethral trauma Brief History: Patient presented to [facility] ER and clot retention. He had a known history of a renal mass on the right side and metastatic lung cancer. Etiology of the clot retention was unclear but it was presumed apparently to be renal cell carcinoma bleeding. He had been on long-term Eliquis for remote PE. A catheter was attempted to be placed in that emergency department but never really did function. The patient was attempted to be transferred to [facility] where he had been receiving his care for his metastatic lung cancer and had planned care for his renal cancer. Unfortunately they were on full divert due to no beds available. Patient was transferred here for further evaluation. Attempts at catheterization in the emergency department were unsuccessful and a bedside flexible cystoscopy reviewed and consider the above information for this visit a rather severe urethral trauma. Hospital Course Hospital Course Patient was taken directly to the operating room where thankfully the injury could be bridged with a very small ureteroscope and a large bore catheter placed over a guidewire which facilitated clearing the clots and draining is very stiff distended bladder. He was placed on continuous bladder irrigation. It took multiple days before the CBI could be slowly weaned off. He received a couple units of transfusions. Had some problems of bladder spasms toward the end of his stay he was started on antibiotics presumed from portal of entry of bacteria with multiple irrigations and catheter, was also treated with temporary course of oxybutynin. Pyridium also seem to help as bladder spasms. On the day of discharge 07/06/2022 he was deemed a good candidate for further convalescence at home and was instructed to continue his planned treatment at [facility]. He apparently already has appointment set up with urology and oncology there. He was instructed that if he began to have significant bleeding again to drive directly to [facility] rather than his local hospital where they do not have the capacity to manage the underlying problem which is what you will take to stop the bleeding. It is very likely if he returns to his local hospital they will face the same dilemma and trying to place him at a tertiary center that is required to complete his care. Hopefully there will not be any emergent scenarios that arise and he can follow through with a paced scheduling as already planned. All of this was explained in great detail to the patient. Regarding the catheter it was my recommendation to the patient to maintain it for up to 2 weeks and have the catheter removed at a time where he could have a cystoscopy to evaluate for healing before its plan to be left out entirely. That will be deferred to the urology service at [facility] though. Physical Exam Const: COMMON NORMALS: no acute distress, alert and well nourished GENERAL APPEARANCE: well kempt and well developed ORIENTATION/CONSCIOUSNESS: not confused Resp: COMMON NORMALS: normal respiratory effort EFFORT & INSPECTION: Yes able to speak in complete sentences, No labored and No Actively coughing : OTHER: Urine is clear today. Minimal CBI running Irrigated without clots Neuro: COMMON NORMALS: no focal motor deficits SENSORIUM/ORIENTATION: Yes alert Psych: COMMON NORMALS: mental status grossly normal APPEARANCE: Yes grossly normal and Yes well kempt ATTITUDE: Yes calm and Yes engaged Urinary Catheter Management: 3-way Urethral CBI: Cath Placed During This Visit: yes Reason for Continuing Indwelling Catheter: Acute Urinary Retention or Obstruction Urinary Catheter Date of Insertion: 06/30/22 Urinary Catheter Time of Insertion: 08:00 Courtney: Cath Placed During This Visit: yes, but has since been removed by the nurse Reason for Continuing Indwelling Catheter: Decision to DC Catheter Urinary Catheter Date of Insertion: 06/30/22 Urinary Catheter Time of Insertion: 08:00 Date Urinary Catheter Removed: 06/30/22 Time Urinary Catheter Discontinued: 05:00 Discharge Data Studies Completed and Pending Laboratory Results WBC 10.3 10^3/uL (4.0-10.0) H 07/05/22 01:59 RBC 3.08 10^6/uL (4.1-5.3) L 07/05/22 01:59 Hgb 8.9 g/dL (11.7-16.6) L 07/05/22 01:59 Hct 27.7 % (42.0-52.0) L 07/05/22 01:59 MCV 89.9 fl (80-94) 07/05/22 01:59 MCH 28.9 pg (28.0-34.0) 07/05/22 01:59 MCHC 32.1 g/dL (30.0-36.0) 07/05/22 01:59 RDW 15.1 % (12.1-15.1) 07/05/22 01:59 Plt Count 104 10^3/cmm (130-400) L 07/05/22 01:59 MPV 10.3 fL (7.4-10.4) 07/05/22 01:59 Neut % (Auto) 77.4 % 07/05/22 01:59 Lymph % (Auto) 10.6 % 07/05/22 01:59 Saunders % (Auto) 7.7 % 07/05/22 01:59 Eos % (Auto) 3.4 % 07/05/22 01:59 Baso % (Auto) 0.3 % 07/05/22 01:59 Neut # (Auto) 7.96 10^3/uL (1.8-7.7) H 07/05/22 01:59 Lymph # (Auto) 1.1 10^3/uL (0.8-4.8) 07/05/22 01:59 Saunders # (Auto) 0.8 10^3/uL (0.2-0.9) 07/05/22 01:59 Eos # (Auto) 0.4 10^3/uL (0.0-0.8) 07/05/22 01:59 Baso # (Auto) 0.0 10^3/uL (0.0-0.1) 07/05/22 01:59 Nucleated RBC % (auto) 0 % 07/05/22 01:59 Nucleated RBCs # 0.0 /100WBC 07/05/22 01:59 PT 16.20 SECONDS (12.1-14.9) H 06/30/22 05:00 INR 1.27 (0.8-1.2) H 06/30/22 05:00 Sodium 138 mmol/L (136-145) 07/05/22 01:59 Potassium 3.8 mmol/L (3.5-5.1) 07/05/22 01:59 Chloride 103 mmol/L (98-107) 07/05/22 01:59 Carbon Dioxide 25 mmol/L (22-29) 07/05/22 01:59 Anion Gap 13.8 (5-19) 07/05/22 01:59 BUN 16 mg/dL (8-23) 07/05/22 01:59 Creatinine 1.1 mg/dL (0.7-1.2) 07/05/22 01:59 GFR Calculation Not Reportable 07/05/22 01:59 Glucose 128 mg/dL (65-115) H 07/05/22 01:59 POC Glucose 150 mg/dL (70-110) H 07/06/22 06:27 Calculated Osmolality 289 mOsm/kg (285-295) 07/05/22 01:59 Calcium 8.9 mg/dL (8.5-10.5) 07/05/22 01:59 Total Bilirubin 1.3 mg/dL (0.15-1.2) H 06/30/22 05:00 AST 18 U/L (0-40) 06/30/22 05:00 ALT 18 U/L (0-41) 06/30/22 05:00 Alkaline Phosphatase 426 U/L (40-130) H 06/30/22 05:00 Troponin T Baseline 49 ng/L (0-15) H 07/05/22 01:59 Troponin T 120 Minute 47.83 ng/L (0-15) H 07/05/22 03:52 Delta Troponin T -1.17 ABS# (0-10) L 07/05/22 03:52 Troponin T Hi Sens 6Hr 45.14 ng/L (0-15) H 07/05/22 08:03 Troponin T Hi Sens 6Hr Delta -3.86 ng/L (0-12) L 07/05/22 08:03 Total Protein 7.7 g/dL (6.6-8.7) 06/30/22 05:00 Albumin 4.6 g/dL (3.5-5.2) 06/30/22 05:00 Globulin 3.1 g/dL (1.3-4.6) 06/30/22 05:00 Blood Type AB Negative 07/02/22 04:55 Rho(D) Type Negative 07/02/22 04:55 Antibody Screen Negative 07/02/22 04:55 Crossmatch See Detail 07/02/22 04:55 Vitals Last Vital Signs Temp 98.1 F 07/06/22 07:42 Pulse 84 07/06/22 07:42 Resp 17 07/06/22 07:42 BP 137/88 07/06/22 07:42 Pulse Ox 96 07/06/22 07:42 O2 Del Method 07/06/22 07:42 O2 Flow Rate 6 06/30/22 08:39 Discharge Plan Discharge Patient Disposition: Home Health Service Condition: Stable Prescriptions: New oxybutynin chloride 5 mg tablet 5 mg PO BID PRN (Reason: bladder spasms) Qty: 60 0RF levofloxacin 500 mg tablet 500 mg PO DAILY 28 Days Qty: 10 0RF Pyridium 200 mg tablet 200 mg PO Q8H PRN (Reason: pain) Qty: 30 1RF Continued atorvastatin 40 mg tablet 40 mg PO QPM metformin 500 mg tablet 500 mg PO QAM citalopram 40 mg tablet 40 mg PO QPM metoprolol succinate 50 mg tablet extended release 24 hr 50 mg PO QPM hydrocodone-acetaminophen 5-325 mg tablet 1 tab PO Q8H PRN (Reason: Pain) ondansetron HCl 8 mg tablet 8 mg PO Q8H PRN (Reason: Nausea And Vomiting) prochlorperazine maleate [Compazine] 10 mg tablet 10 mg PO Q6H PRN (Reason: Nausea And Vomiting) trazodone 100 mg tablet 300 mg PO BEDTIME amlodipine 10 mg tablet 10 mg PO QPM ezetimibe [Zetia] 10 mg tablet 10 mg PO QPM albuterol sulfate 90 mcg/actuation HFA aerosol inhaler 2 puff INHALATION Q4H PRN (Reason: Shortness Of Breath) Discontinued Eliquis 5 mg tablet 5 mg PO QPM Discharge Orders: Discharge Order (Routine); Ordered 07/06/22 Ordered By: Monico Cason Referrals: Dr. Dagoberto Batres [Other] [facility] [Other] ([facility] will start you care on Tuesday, July 04. If you have any questions or concerns please reach out to them at [phone].) Discharge Diet: Usual diet Discharge Activity: Limit activity as instructed Patient Instructions: Opioid Safety Activity Restrictions/Additional Instructions: 1. Catheter will be maintained until removed by urology at [facility]. I recommended that the urethra be reevaluated before leaving the catheter out. That would entail a cystoscopy to make sure there is adequate healing. 2. Right now the presumption is the bleeding was coming from the kidney cancer but that has not been proven because the bladder has not been carefully examined due to the urethral injury that prevented an adequate scope of the bladder to be passed into the bladder. That will be important as well because there could be other causes of bleeding that have to be addressed in addition to the kidney. 3. Because your work-up is already started in a very capable setting at [facility] the preference would be to continue that work-up with urology there as well as your oncologist. It is my understanding that you have appointments already set up and I would encourage you to follow through with those. 4. Because the urine has cleared and stayed cleared without CBI I feel it is safe to continue convalescence at home. 5. If you begin to bleed significantly again and having trouble with the catheter I do not recommend being evaluated at your local hospital but rather drive to [facility] emergency department to plug into the system. You need to be at a facility that can complete the plans already initiated at [facility]. This is a very important point 6. Please feel free to call if you have any questions or concerns that I might be able to address given your care here. 7. Please bring your copies of the hospital notes with you when you go to [facility] for follow-up. Discharge Attestations Time Spent in Discharge Care*: greater than 30 min Quality Metrics Clinical Quality Measures [ No reported AMI, CVA or VTE this stay] Coding Level of Care Code Acute Chg FW DC note Diagnoses Hematuria R31.0 Hematuria type: gross Acute urinary retention R33.8 Diabetes E11.9 Renal cancer C64.9 Hypertension I10 Urethral injury S37.30XA
[2022-07-06] MEDS: insulin lispro 100 unit/1 mL SUBCUT (08:37)
[2022-07-06] MEDS: citalopram 20 mg Tablet 40 MG PO (08:38)
[2022-07-06] MEDS: quetiapine 100 mg Tablet PO (08:38)
[2022-07-06] MEDS: atorvastatin 40 mg Tablet PO (08:38)
[2022-07-06] MEDS: ezetimibe 10 mg Tablet PO (08:38)
[2022-07-06] MEDS: metoprolol succinate ER (24 HR) 50 mg Tablet PO (08:39)
[2022-07-06] MEDS: oxybutynin 5 mg Tablet PO (08:39)
[2022-07-06 12:19] VITALS: BP 137/88; PULSE 84; RESP 17; TEMP 36.7; O2SAT 96
== END 2022-07-06 12:20 | disposition home health service (06) | DRG 654 ==
LOC: ER 06:26 → MEDSURG 10:37
PROVIDERS: Emergency Medicine; Internal Medicine; Student in an Organized Health Care Education/Training Program; Admitting Provider Urology; Emergency Provider Emergency Medicine; Visit Provider Urology
PROC: 0TJB8ZZ Inspection of Bladder, Via Natural or Artificial Opening Endoscopic (ICD-10-PCS; CPT 52000; principal; 2022-06-30 07:00)
PROC: 0T7B8ZZ Dilation of Bladder, Via Natural or Artificial Opening Endoscopic (ICD-10-PCS; 2022-06-30 07:00)
PROC: 0T5B8ZZ Destruction of Bladder, Via Natural or Artificial Opening Endoscopic (ICD-10-PCS; 2022-06-30 07:00)
DX: C64.1 Malignant neoplasm of right kidney, except renal pelvis (principal); C78.00 Secondary malignant neoplasm of unspecified lung; C79.51 Secondary malignant neoplasm of bone; T83.83XA Hemorrhage due to genitourinary prosthetic devices, implants and grafts, initial encounter; D62 Acute posthemorrhagic anemia; N32.89 Other specified disorders of bladder; G47.33 Obstructive sleep apnea (adult) (pediatric); F17.200 Nicotine dependence, unspecified, uncomplicated; F12.90 Cannabis use, unspecified, uncomplicated; R31.0 Gross hematuria; Y73.8 Miscellaneous gastroenterology and urology devices associated with adverse incidents, not elsewhere classified; Z79.891 Long term (current) use of opiate analgesic; Z79.84 Long term (current) use of oral hypoglycemic drugs; N36.5 Urethral false passage; Z86.711 Personal history of pulmonary embolism; E78.5 Hyperlipidemia, unspecified; E11.9 Type 2 diabetes mellitus without complications; F41.8 Other specified anxiety disorders
CPT/HCPCS: 36415; 36416; 36430; 51702; 80048; 80053; 82274; 82962; 84484; 85014; 85018; 85025; 85610; 86850; 86900; 86920; 93005; 96365; 96372; 96375; 96376; 99285; J0330; J1100; J1170; J1815; J1956; J2270; J2405; J2704; J2710; J3010; J3490; J7030; P9016; P9047